=== PATIENT | male | born 1940 | race Caucasian/White ===

== ENCOUNTER → 2016-08-28 | Outpatient (CLI) | payer BC ==
[~2016-08-28] MED LIST: DABI150C PO; FURO-85 PO; HYDC25 PO; LISI5TAB3 PO; METO25TA3 PO; POTA10CA28 PO; PRLSR20 PO
[2016-08-28 12:38] LABS: HEMATOCRIT 42.5 % (42-52); MEAN CELL VOLUME 94.9 fL (80-100); MEAN CORPUSCULAR HEMOGLOBIN 29.9 pg (25-34); MEAN CORPUSCULAR HGB CONC 31.5 g/dl (32-36); PLATELET COUNT 139 K/uL (130-400); RED BLOOD COUNT 4.48 M/uL (4.7-6.1); WHITE BLOOD COUNT 4.91 K/uL (4.8-10.8)
[2016-08-28 13:05] LABS: BLOOD UREA NITROGEN 13 mg/dl (7-18); BUN/CREATININE RATIO 14.6 (10-20); CALCIUM 8.8 mg/dl (8.5-10.1); CARBON DIOXIDE 32 mmol/L (21-32); CHLORIDE 103 mmol/L (98-107); CREATININE 0.92 mg/dl (0.60-1.40); GLUCOSE 86 mg/dl (70-99); POTASSIUM 3.8 mmol/L (3.5-5.1); SODIUM 139 mmol/L (136-145)
[2016-08-28 13:10] LABS: ALB/GLOB RATIO 0.9 (0.9-2); ALKALINE PHOSPHATASE 71 U/L (45-117); ALT/SGPT 18 U/L (12-78); AST/SGOT 24 U/L (15-37); CHOLESTEROL 126 mg/dl (0-200); CHOLESTEROL/HDL RATIO 2.2; HDL CHOLESTEROL 58 mg/dl; LDL CHOLESTEROL CALCULATED 59 mg/dl; TRIGLYCERIDES 44 mg/dl (0-150); VERY LOW DENSITY LIPOPROT CALC 9 mg/dl
== END | disposition home or self-care (01) ==
LOC: C.LABPVFM 07:32
PROVIDERS: ATTEND Physician Assistant
DX: I48.91 Unspecified atrial fibrillation (principal); K22.70 Barrett's esophagus without dysplasia; Z85.828 Personal history of other malignant neoplasm of skin; I10 Essential (primary) hypertension

== ENCOUNTER → 2017-05-15 | Outpatient (CLI) | payer BC ==
--- NOTE | 2017-05-15 13:21 | DIAGNOSTIC IMAGING REPORT ---
BILATERAL LOWER EXTREMITY VENOUS DOPPLER HISTORY: Bilateral lower extremity edema. COMPARISON STUDY: None. FINDINGS: Bilateral lower kidney subcutaneous edema. This results in difficult evaluation of the bilateral calf vessels with near nondiagnostic evaluation. No definite thrombus identified. The bilateral common femoral, superficial femoral, popliteal veins show no acute thrombus. Small punctate calcification within the wall the right common femoral vein could be due to old injury or chronic thrombus. IMPRESSION: 1. No acute DVT within the visualized bilateral lower extremity venous systems. 2. Small focal calcification within the wall of the right common femoral vein which could be due to old injury or a small focus of chronic thrombus. Electronically signed by: Xander Black M.D. 05/15/2017 1:20 PM Dictated Date/Time: 05/15/2017 1:18 PM
== END | disposition home or self-care (01) ==
LOC: C.ULTRBC 12:14
PROVIDERS: ATTEND Orthopaedic Surgery Sports Medicine
DX: R60.0 Localized edema (principal)

== ENCOUNTER 2021-04-05 16:28 | Inpatient (IN) ==
[2021-04-05] MEDS ORDERED: LACTATED RINGER'S 1,000 ML IV ONE (16:49)
[2021-04-05 17:07] LABS: Hematocrit (blood only) 36.9 % (42-52); Hemoglobin 12.4 g/dL (14.0-18.0); Mean Corpuscular Hemoglobin 30.5 pg (25-34); Mean Corpuscular Hgb Conc 33.6 g/dL (32-36); Mean Corpuscular Volume 90.9 fL (80-100); Mean Platelet Volume 8.6 fL (7.4-10.4); Platelet Count 217 K/uL (130-400); RDW Coefficient of Variation 15.1 % (11.5-14.5); Red Blood Count 4.06 M/uL (4.7-6.1); White Blood Count 10.83 K/uL (4.8-10.8)
[2021-04-05 17:30] LABS: Alanine Aminotransferase 15 U/L (7-52); Albumin Level 3.5 gm/dl (3.4-5.0); Alkaline Phosphatase 70 U/L (34-104); Anion Gap 7 (3-11); Aspartate Aminotransferase 19 U/L (13-39); BUN Creatinine Ratio 23.6 (10-20); Bilirubin,Total 0.6 mg/dl (0.2-1.0); Blood Urea Nitrogen 39 mg/dl (6-23); Calcium 9.2 mg/dl (8.5-10.1); Carbon Dioxide 21 mmol/L (21-32); Chloride 100 mmol/L (98-107); Est GFR (African American) 44.1 ml/min; Est GFR (Non-African American) 38.1 ml/min; Globulin 3.4 gm/dl (2.5-4.0); Glucose 104 mg/dl (70-99(Fasting)); Lipase 8 U/L (11-82); Magnesium 2.1 mg/dl (1.7-2.4); Potassium 6.3 mmol/L (3.5-5.1); Sodium 128 mmol/L (136-145); Total Protein 6.9 gm/dl (6.0-8.3); Troponin I 0.12 ng/ml (0-0.04)
[2021-04-05 17:32] LABS: Acanthocytes 1+; Basophils # (auto) 0.01 K/uL (0-0.2); Basophils % (auto) 0.1 %; Eosinophils # (auto) 0.04 K/uL (0-0.5); Eosinophils % (auto) 0.4 %; Immature Granulocytes # (auto) 0.09 K/uL (0.00-0.02); Immature Granulocytes % (auto) 0.8 %; Lymphocytes # (auto) 0.75 K/uL (1.2-3.4); Lymphocytes % (auto) 6.9 %; Monocytes # (auto) 0.71 K/uL (0.11-0.59); Monocytes % (auto) 6.6 %; Neutrophils # (auto) 9.23 K/uL (1.4-6.5); Neutrophils % (auto) 85.2 %
--- NOTE | 2021-04-05 19:12 | Emergency Department Note ---
History of Present Illness General Chief complaint: Abnormal Labs/Diagnostic Testing Stated complaint: DR AJ, DEHYDRATED, BP LOW Time Seen by Provider: 04/05/21 16:38 Source: patient and family Mode of arrival: ambulatory Limitations: no limitations History of Present Illness Provider complaint: Weakness, hypotension, referred by PCP Onset (ago): week(s) 1 Associated symptoms: + loss of appetite and + malaise; no cough, no fever/chills, no nausea/vomiting or no shortness of breath Treatments prior to arrival: none This is an 80-year-old male who presents emergency department due to concern for weakness and low blood pressure found by the PCP in the office. Patient states he began having diarrhea 1 week ago after he and his sister whom he lives with had eaten out the night before. Patient states he has had several episodes of diarrhea each day over the course of the last week. He states he does have intermittent abdominal pain and cramping with it, typically preceding the diarrhea and improved after. He denies noting any black or bloody stools. He denies any accompanying nausea or vomiting. He denies fevers or chills. Patient states he has felt increasingly weak and has had some mild dyspnea on exertion. He finally saw the PCP in the office today, and upon a check of his vital signs on presentation to the office he was found to be hypotensive, 80s over 60s. He was referred to the emergency room for additional evaluation. Patient has had prior abdominal surgery including resection of his colon with reanastomosis. Patient denies any bloating. He denies any other change in medications or diet. Sister states she has not been ill. Sister states he doesn't drink much water. Pt seen during a time of high acuity and national emergency pandemic while wearing PPE. Home Medications Medication Instructions Recorded Confirmed Type flunisolide 25 mcg (0.025 %) nasal 1 sprays INTRANASAL ONCE PRN ml 08/10/18 04/05/21 History spray multivitamin 1 tab PO BID 10/23/18 04/05/21 History aspirin 81 mg tablet,delayed 81 mg PO DAILY 02/18/19 04/05/21 History release lisinopril 5 mg tablet 5 mg PO QAM #90 tab 02/23/20 04/05/21 Rx metoprolol succinate 25 mg 12.5 mg PO DAILY #45 tab 02/23/20 04/05/21 Rx tablet,extended release 24 hr omeprazole 20 mg capsule,delayed 20 mg PO QAM #90 cap 02/23/20 04/05/21 Rx release meloxicam 7.5 mg tablet 7.5 mg PO DAILY 14 Days #14 tab 06/21/20 04/05/21 Rx metolazone 5 mg tablet 5 mg PO QAM #30 tab 07/30/20 04/05/21 Rx spironolactone 25 mg tablet 25 mg PO DAILY #90 tab 02/18/21 04/05/21 Rx potassium chloride 20 mEq 60 meq PO .COMPLEX #450 tab 03/15/21 04/05/21 Rx tablet,extended release(part/cryst) furosemide 40 mg tablet 40 mg PO BID #180 tab 03/25/21 04/05/21 Rx Allergies Allergy/AdvReac Type Severity Reaction Status Date / Time No Known Allergies Allergy Unknown Verified 04/05/21 17:36 Past Med/Surg History Medical History Hearing deficit History of colon polyps Melanoma of face Osteoarthritis Pulmonary embolism 2004--after ortho sx--on pradaxa Surgical History History of colonoscopy History of colostomy 02/1989 History of colostomy reversal History of esophagogastroduodenoscopy (EGD) History of inferior vena caval filter placement 2005 @ [facility] History of Mohs micrographic surgery for skin cancer x2 History of partial colectomy benign tumor growth 02/1989--about 1 foot removed History of sinus surgery History of tonsillectomy and adenoidectomy History of tooth extraction all teeth removed History of total bilateral knee replacement History of total replacement of both hip joints Family History Mother Diabetes Father Sick sinus syndrome due to SA node dysfunction Sister Colorectal cancer Other No family history of adverse response to anesthesia Denies family history of Ovarian cancer Prostate cancer Breast cancer Social History Smoking Status: Former smoker Age Quit Using Tobacco: 38; Second Hand Exposure: No; Do You Dip or Chew Tobacco: No; Tobacco Cessation Education Requested by Patient: No Hx Alcohol Use: Yes Alcohol type: beer Hx Substance Use: No Preferred Language: Marshallese Communication Ability: Effective Hearing Ability: Use of Hearing Aid [employer] Maintenance [employer] Required: No Beliefs That Will Affect Care: None marital status: Unknown Current Living Situation: Family Current Living Situation Comment: lives with sister current occupational status: retired How many Children do You have: 1 Other Information That Helps Us Care for You: No Feels Safe at Home: Yes Safety Concerns: Feels Safe At This Time Childhood Exposure to Second-Hand Smoke: Yes caffeine: Yes Dental Care, Regularly: No Physical Activity Frequency: Daily Physical Activity Frequency Comment: Walking Seatbelt Use: always Sunscreen Use: No Assistive Devices: Walker Review of Systems A total of 10 systems reviewed and were otherwise negative All systems reviewed & are unremarkable except as noted in HPI & below Physical Exam Vital Signs Vital Signs - 24 hr 04/05/21 16:30 04/05/21 16:56 04/05/21 18:56 Temperature 36.5 C Temperature Source Oral Pulse Rate 71 Pulse Rate [Apical] 65 55 L Pulse Rhythm [Apical] Regular Regular Respiratory Rate 18 18 19 Respiratory Effort / Characteristics Non-Labored Spontaneous Respiratory Depth Normal Normal Normal Respiratory Pattern Regular Blood Pressure 88/55 L Blood Pressure [Left Arm] 120/59 L 120/60 Blood Pressure Mean 66 Blood Pressure Mean [Left Arm] 79 80 Blood Pressure Position Sitting Pulse Oximetry 97 95 96 Oxygen Delivery Method Room Air Room Air Room Air Sepsis Recent Fever Within 48 Hours No Sepsis New/Unexplained Change in Mental Status No Sepsis Action Taken by Nursing No Action Required GENERAL: alert, well appearing, well nourished, no distress, non-toxic EYE EXAM: normal conjunctiva, PERRL and EOM's grossly intact OROPHARYNX: no exudate, no erythema, lips, buccal mucosa, and tongue normal and mucous membranes are tacky NECK: supple, no nuchal rigidity, no adenopathy, non-tender LUNGS: Clear to auscultation. Normal chest wall mechanics, no w/r/r HEART: no murmurs, S1 normal and S2 normal ABDOMEN: abdomen soft, non-tender, normo-active bowel sounds, no masses, no rebound or guarding. Well-healed vertical midline incision to the lower abdomen consistent with prior surgery. BACK: Back is symmetrical on inspection and there is no deformity, no midline tenderness, no CVA tenderness. SKIN: no rashes and no bruising UPPER EXTREMITIES: upper extremities are grossly normal. FROM, nml pulses b/l. LOWER EXTREMITIES: No pitting edema. FROM, nml pulses b/l. NEURO EXAM: Normal sensorium, cranial nerves II-XII grossly intact, normal speech, no gross weakness of arms, no gross weakness of legs. Gross sensation intact. Course Course 1899: Patient updated on results at this time. Administered Medications Aspirin (Aspirin 81 Mg Ectab) 81 mg PO DAILY KARIS Stop: 05/06/21 08:59 Last Admin: 04/07/21 08:25 Dose: 81 mg Documented by: [id number] Admin: 04/06/21 07:41 Dose: 81 mg Documented by: [id number] Enoxaparin Sodium (Enoxaparin Inj 30 Mg/0.3 Ml Syr) 30 mg SQ Q24H KARIS Stop: 05/05/21 21:59 Last Admin: 04/06/21 23:21 Dose: 30 mg Documented by: [id number] Admin: 04/06/21 01:02 Dose: 30 mg Documented by: [id number] Sodium Chloride (Nss 1000ml) 1,000 mls @ 125 mls/hr IV .Q8H KARIS Stop: 05/06/21 15:14 Last Admin: 04/07/21 04:49 Dose: 125 mls/hr Documented by: [id number] Infusion: 04/07/21 04:49 Dose: 0 mls/hr Documented by: [id number] Admin: 04/06/21 21:29 Dose: 125 mls/hr Documented by: [id number] Metoprolol Succinate (Metoprolol Succ 25mg Ext Rel Tab) 12.5 mg PO DAILY KARIS Stop: 05/06/21 08:59 Last Admin: 04/07/21 08:24 Dose: 12.5 mg Documented by: [id number] Admin: 04/06/21 07:42 Dose: 12.5 mg Documented by: [id number] Multivitamins (Multivitamin Tab) 1 tab PO BID KARIS Stop: 05/05/21 22:29 Last Admin: 04/07/21 08:24 Dose: 1 tab Documented by: [id number] Admin: 04/06/21 21:33 Dose: 1 tab Documented by: [id number] Admin: 04/06/21 07:42 Dose: 1 tab Documented by: [id number] Admin: 04/06/21 01:02 Dose: 1 tab Documented by: [id number] Pantoprazole Sodium (Pantoprazole 40 Mg Tab) 40 mg PO QAM [facility] Stop: 05/06/21 08:59 Last Admin: 04/07/21 08:24 Dose: 40 mg Documented by: [id number] Admin: 04/06/21 07:42 Dose: 40 mg Documented by: [id number] Discontinued Medications Lactated Ringer's (Lr) 1,000 mls @ 999 mls/hr IV .Q1H1M ONE Stop: 04/05/21 17:49 Last Infusion: 04/05/21 19:12 Dose: 0 mls/hr Documented by: [id number] Admin: 04/05/21 16:55 Dose: 999 mls/hr Documented by: [id number] Lactated Ringer's (Lr) 1,000 mls @ 125 mls/hr IV .Q8H [facility] Stop: 04/06/21 03:14 Last Infusion: 04/06/21 11:09 Dose: 0 mls/hr Documented by: [id number] Admin: 04/06/21 03:47 Dose: 125 mls/hr Documented by: [id number] Infusion: 04/06/21 03:46 Dose: 0 mls/hr Documented by: [id number] Admin: 04/05/21 19:26 Dose: 125 mls/hr Documented by: [id number] Sodium Chloride (Nss 1000ml) 500 mls @ 999 mls/hr IV .Q31M ONE Stop: 04/06/21 14:02 Last Infusion: 04/06/21 16:00 Dose: 0 mls/hr Documented by: [id number] Admin: 04/06/21 15:25 Dose: 999 mls/hr Documented by: [id number] Sodium Chloride (Nss) 500 mls @ 125 mls/hr IV .Q4H [facility] Stop: 05/06/21 15:14 Last Admin: 04/07/21 02:01 Dose: Not Given Documented by: [id number] Infusion: 04/06/21 20:10 Dose: 0 mls/hr Documented by: [id number] Admin: 04/06/21 16:06 Dose: 125 mls/hr Documented by: [id number] Medical Decision Making Differential Diagnosis Differential: Viral, Bacterial, Parasitic, Iatrogenic, C-Diff, Malabsorbtion, Irritable Bowel Disease, IBS, Ischemic Bowel, amongst other pathologies entertained. Medical Records Attestation: I reviewed the patient's medical records. Home Medications Current Medication List: was personally reviewed by me Laboratory Data Attestation: I reviewed the patient's lab results. Result diagrams: 04/07/21 07:02 04/07/21 07:02 Lab Results 04/05/21 04/05/21 04/05/21 Range/Units 17:00 17:00 17:00 WBC 10.83 H (4.8-10.8) K/uL RBC 4.06 L (4.7-6.1) M/uL Hgb 12.4 L (14.0-18.0) g/dL Hct 36.9 L (42-52) % MCV 90.9 (80-100) fL MCH 30.5 (25-34) pg MCHC 33.6 (32-36) g/dL RDW Std Deviation 50.0 H (36.4-46.3) fL RDW Coeff of Thomas 15.1 H (11.5-14.5) % Plt Count 217 (130-400) K/uL MPV 8.6 (7.4-10.4) fL Immature Gran % (Auto) 0.8 % Neut % (Auto) 85.2 % Lymph % (Auto) 6.9 % [place] % (Auto) 6.6 % Eos % (Auto) 0.4 % Baso % (Auto) 0.1 % Neut # (Auto) 9.23 H (1.4-6.5) K/uL Lymph # (Auto) 0.75 L (1.2-3.4) K/uL [place] # (Auto) 0.71 H (0.11-0.59) K/uL Eos # (Auto) 0.04 (0-0.5) K/uL Baso # (Auto) 0.01 (0-0.2) K/uL Immature Gran # (Auto) 0.09 H (0.00-0.02) K/uL Acanthocytes (Spur) 1+ Sodium 128 L (136-145) mmol/L Potassium 6.3 H* (3.5-5.1) mmol/L Chloride 100 (98-107) mmol/L Carbon Dioxide 21 (21-32) mmol/L Anion Gap 7 (3-11) BUN 39 H (6-23) mg/dl Creatinine 1.65 H (0.6-1.4) mg/dl Est Cr Clr Drug Dosing Not Reportable Est GFR ( Amer) 44.1 ml/min Est GFR (Non-Af Amer) 38.1 ml/min BUN/Creatinine Ratio 23.6 H (10-20) Glucose 104 H (70-99(Fasting)) mg/dl Lactate 1.2 (0.4-2.0) mmol/L Calcium 9.2 (8.5-10.1) mg/dl Magnesium 2.1 (1.7-2.4) mg/dl Total Bilirubin 0.6 (0.2-1.0) mg/dl AST 19 (13-39) U/L ALT 15 (7-52) U/L Alkaline Phosphatase 70 (34-104) U/L Troponin I 0.12 H* (0-0.04) ng/ml Total Protein 6.9 (6.0-8.3) gm/dl Albumin 3.5 (3.4-5.0) gm/dl Globulin 3.4 (2.5-4.0) gm/dl Albumin/Globulin Ratio 1.0 (0.9-2) Lipase 8 L (11-82) U/L SARS-CoV-2, RNA, NAAT (NEGATIVE) 04/05/21 04/05/21 Range/Units 19:13 19:50 WBC (4.8-10.8) K/uL RBC (4.7-6.1) M/uL Hgb (14.0-18.0) g/dL Hct (42-52) % MCV (80-100) fL MCH (25-34) pg MCHC (32-36) g/dL RDW Std Deviation (36.4-46.3) fL RDW Coeff of Thomas (11.5-14.5) % Plt Count (130-400) K/uL MPV (7.4-10.4) fL Immature Gran % (Auto) % Neut % (Auto) % Lymph % (Auto) % [place] % (Auto) % Eos % (Auto) % Baso % (Auto) % Neut # (Auto) (1.4-6.5) K/uL Lymph # (Auto) (1.2-3.4) K/uL [place] # (Auto) (0.11-0.59) K/uL Eos # (Auto) (0-0.5) K/uL Baso # (Auto) (0-0.2) K/uL Immature Gran # (Auto) (0.00-0.02) K/uL Acanthocytes (Spur) Sodium 130 L (136-145) mmol/L Potassium 5.8 H (3.5-5.1) mmol/L Chloride 103 (98-107) mmol/L Carbon Dioxide 21 (21-32) mmol/L Anion Gap 6 (3-11) BUN 38 H (6-23) mg/dl Creatinine 1.48 H (0.6-1.4) mg/dl Est Cr Clr Drug Dosing Not Reportable Est GFR ( Amer) 50.3 ml/min Est GFR (Non-Af Amer) 43.4 ml/min BUN/Creatinine Ratio 25.7 H (10-20) Glucose 100 H (70-99(Fasting)) mg/dl Lactate (0.4-2.0) mmol/L Calcium 8.7 (8.5-10.1) mg/dl Magnesium (1.7-2.4) mg/dl Total Bilirubin (0.2-1.0) mg/dl AST (13-39) U/L ALT (7-52) U/L Alkaline Phosphatase (34-104) U/L Troponin I (0-0.04) ng/ml Total Protein (6.0-8.3) gm/dl Albumin (3.4-5.0) gm/dl Globulin (2.5-4.0) gm/dl Albumin/Globulin Ratio (0.9-2) Lipase (11-82) U/L SARS-CoV-2, RNA, NAAT NEGATIVE (NEGATIVE) Imaging Data Radiologist's Impression: Abdomen/Pelvis CT 04/05/21 19:08 CT OF THE ABDOMEN AND PELVIS WITHOUT CONTRAST CLINICAL HISTORY: Diarrhea. COMPARISON STUDY: No previous studies for comparison. TECHNIQUE: Axial images of the abdomen and pelvis were obtained without IV contrast. Images were reviewed in the axial, sagittal, and coronal planes. Automated exposure control was utilized for the study. A dose lowering technique was utilized adhering to the principles of ALARA. FINDINGS: Bilateral gynecomastia is incidentally noted. Moderate cardiomegaly is present. Lung bases are unremarkable. There is a small hiatal hernia. Evaluation of the abdomen and pelvis is suboptimal given lack of IV contrast and motion artifact. Unenhanced images of liver, spleen, adrenal glands, right kidney and pancreas are unremarkable. 2 mm nonobstructing left renal calculus is present. There is no hydronephrosis. No ureteral calculi identified although evaluation of the distal ureter is compromised by streak artifact from bilateral hip arthroplasties. IVC filter is in place. No biliary or pancreatic ductal dilatation. No peripancreatic or pericholecystic infiltration. A left-sided spigelian hernia contains multiple small bowel loops. A portion of the descending colon slightly extends into the defect. There is no resultant bowel obstruction. There is suspected mild wall thickening of several distal ileal loops with mild associated mesenteric stranding. Colonic diverticulosis without evidence for acute diverticulitis. The appendix is normal. No acute fracture or suspicious lesion is identified within visualized skeletal structures. IMPRESSION: 1. Suspected mild wall thickening of several distal ileal loop with mild associated mesenteric stranding. This represents a nonspecific enteritis. 2. Left-sided spigelian hernia which contains multiple small bowel loops and a small portion of the descending colon. No resultant bowel obstruction. 3. Suboptimal evaluation of the abdomen given motion artifact and lack of IV contrast. 4. Small hiatal hernia. 5. 2 mm left renal calculus. No hydronephrosis. No ureteral calculi. ACT 112: Negative or not required by law. Electronically signed by: Huber Tee M.D. 04/05/2021 7:48 PM ECG Data Attestation: I personally reviewed and interpreted this ECG as follows: Indication: + weakness Rate (beats per minute): 70 Rhythm: + atrial fibrillation ECG Intervals/blocks: + Normal QRS and + Normal QT ECG [place]: + Left axis deviation ECG ST segments: + Nonspecific ST abnormalities MDM Narrative This is an 80 yo male sent in by PCP due to abnormal outpt labs and concern for recent diarrhea. Patient with likely dehydration as he and sister state poor water intake this week. No medication changes. Patient started on IVF. LAKSHMI and likely secondary hyperkalemia noted. Likely from diarrhea and dehydration in combination with his current medications. Elevated troponin likely from renal dysfunction, however, given age and UMANA, may need additional evaluation. No acute EKG changes. No abdominal pain while in the ER, lactic acid reassuring, CT reassuring. Discussed all results with patient and sister given need for cautious additional rehydration and evaluation of symptoms. No diarrhea while patient in the ER. An order was placed for continuous cardiac monitoring. The monitor shows a rate of _72__ with _a.fib_ rhythm. Impression & Plan LAKSHMI (acute kidney injury), Diarrhea, Dehydration, Acute hyperkalemia Discharge Plan Visit Data Chief Complaint: Abnormal Labs/Diagnostic Testing Stated Complaint: DR REFERRAL, DEHYDRATED, BP LOW ED Provider: Lucila Gómez Discharge Problem: LAKSHMI (acute kidney injury), Diarrhea, Dehydration, Acute hyperkalemia Patient Disposition: Admitted As Inpatient Discharge Instructions Interventions: ED Discharge Assessment Last Done: 04/05/21 22:08 Discharge Problem: Diarrhea Qualifiers: Diarrhea type: unspecified type Qualified Code(s): R19.7 - Diarrhea, unspecified
[2021-04-05] MEDS: LACTATED RINGER'S 1,000 ML IV SCH (19:26)
--- NOTE | 2021-04-05 19:50 | CT Scan Report ---
CT OF THE ABDOMEN AND PELVIS WITHOUT CONTRAST CLINICAL HISTORY: Diarrhea. COMPARISON STUDY: No previous studies for comparison. TECHNIQUE: Axial images of the abdomen and pelvis were obtained without IV contrast. Images were revi ewed in the axial, sagittal, and coronal planes. Automated exposure control was utilized for the cathi dy. A dose lowering technique was utilized adhering to the principles of ALARA. FINDINGS: Bilateral gynecomastia is incidentally noted. Moderate cardiomegaly is present. Lung bases are unremarkable. There is a small hiatal hernia. Evaluation of the abdomen and pelvis is suboptimal given lack of IV contrast and motion artifact. Unenhanced images of liver, spleen, adrenal glands, ri ght kidney and pancreas are unremarkable. 2 mm nonobstructing left renal calculus is present. There i s no hydronephrosis. No ureteral calculi identified although evaluation of the distal ureter is compr omised by streak artifact from bilateral hip arthroplasties. IVC filter is in place. No biliary or pa ncreatic ductal dilatation. No peripancreatic or pericholecystic infiltration. A left-sided spigelian hernia contains multiple small bowel loops. A portion of the descending colon slightly extends into the defect. There is no resultant bowel obstruction. There is suspected mild wall thickening of sever al distal ileal loops with mild associated mesenteric stranding. Colonic diverticulosis without evide nce for acute diverticulitis. The appendix is normal. No acute fracture or suspicious lesion is ident ified within visualized skeletal structures. IMPRESSION: 1. Suspected mild wall thickening of several distal ileal loop with mild associated mesenteric strand ing. This represents a nonspecific enteritis. 2. Left-sided spigelian hernia which contains multiple small bowel loops and a small portion of the d escending colon. No resultant bowel obstruction. 3. Suboptimal evaluation of the abdomen given motion artifact and lack of IV contrast. 4. Small hiatal hernia. 5. 2 mm left renal calculus. No hydronephrosis. No ureteral calculi. ACT 112: Negative or not required by law. Electronically signed by: Huber Tee M.D. 04/05/2021 7:48 PM
[2021-04-05 20:15] LABS: Anion Gap 6 (3-11); BUN Creatinine Ratio 25.7 (10-20); Blood Urea Nitrogen 38 mg/dl (6-23); Calcium 8.7 mg/dl (8.5-10.1); Carbon Dioxide 21 mmol/L (21-32); Chloride 103 mmol/L (98-107); Est GFR (African American) 50.3 ml/min; Est GFR (Non-African American) 43.4 ml/min; Glucose 100 mg/dl (70-99(Fasting)); Potassium 5.8 mmol/L (3.5-5.1); Sodium 130 mmol/L (136-145)
--- NOTE | 2021-04-05 21:01 | History & Physical Report ---
Date of Service April 05, 2021 Assessment & Plan (1) Diarrhea: Plan: Bassem Bradley is an 80yo male with PMHx significant for HFpEF (unknown EF), a- fib (on BB but no AC), HTN, HLD, vitamin D deficiency, and hearing loss who presented to [facility] ED with diarrhea, LAKSHMI and electrolyte abnormalities. Diarrhea; Dehydration; Generalized Weakness Suspect that enteritis (most likely viral) with associated diarrhea and dehydration is root cause of most, if not all, current acute problems. Patient already showing improvement with IVFs. However he reportedly has fallen several times in last few months and may have a certain measure of chronic ambulatory dysfunction. - c. diff testing ordered, as well as stool cultures and Giardia Ag - pending - continue LR @125cc/hr - PT/OT ordered LAKSHMI; Hyperkalemia; Hyponatremia Cr 1.65 --> 1.48 after IVF bolus. Baseline Cr 1.2. K 6.3 --> 5.8 after IVF bolus. Suspect pre-renal injury and associated hyperkalemia 2/2 above. Also, Na 128 --> 130 after IVF bolus. Suspect hypovolemic hypotonic hyponatremia 2/2 above. Home diuretics and VINICIUS-I likely contributing to all of these problems. - continue IVFs as stated above - hold home Lisinopril, Lasix, Metolazone, Spironolactone and Mobic - would consider consolidating home regimen to reduce risk of LAKSHMI/electrolyte abnormalities - defer to primary team and PCP/Analytics Lead - hold home potassium - repeat BMP in AM Elevated Troponin Troponin 0.12 but no chest pain and no ST/T wave changes on EKG. Suspect Type II NSTEMI due to dehydration. - will trend Troponin Q6H x2 - EKG PRN chest pain HFpEF; Permanent A-fib With unknown last EF - none in EMR. Sees Dr. Edgar. Refuses anti-coagulation per notes by Dr. Edgar, despite high CHADS-VASc score. - ordered TTE to ensure that patient can tolerate IVFs - continue home Aspirin and Toprol XL 12.5mg GERD - Protonix per hospital formulary FEN/GI: heart-healthy diet, LR @125cc/hr DVT Prophylaxis: Lovenox 30mg SQ Q24H (reduced dose due to advanced age and LAKSHMI) Code Status: full code Disposition: med/surg with tele (2) Dehydration: (3) Ambulatory dysfunction: (4) Atrial fibrillation: (5) Diastolic CHF: (6) Hyponatremia: (7) Hyperkalemia: (8) Acute kidney injury: (9) Elevated troponin: (10) Hypertension: History of Present Illness Chief Complaint: low blood pressure Primary Care Provider: Mohan Sanches DO Bassem Bradley is an 80yo male with PMHx significant for HFpEF (unknown EF), a- fib (on BB but no AC), HTN, HLD, vitamin D deficiency, and hearing loss who presented to [facility] ED on 04/05 for low blood pressure and generalized weakness in context of diarrhea x10 days. Patient reports diarrhea, without blood or mucus, 2-4x per day for last 10 days. Patient has also had decreased PO intake per . He usually is very active and is proficient in all ADLs/iADLs but fell at home (without LOC or trauma) due to weakness. He was tested by PCP (Dr. Sheppard) for c. diff and negative for the gene on 04/02. Due to persistant symptoms and low blood pressure, Dr. Christianson asked him to present to ED. No associated fever/chills. No recent respiratory symptoms or urinary symptoms. No rash. No recent travel or consumption of well water. In the ED the patient was initially hypotensive to 78/50 and tachycardic to 112. He received 1L LR bolus - HR down to 50s-70s and BP up to 120/60. EKG showed a- fib without RVR, and with sign of previous inferior infarct. Laboratory evaluation was significant for WBC 10.83 with neutrophilic predominance and left shift, Hgb 12.4, Na 128, K 6.3, Cr 1.65, BUN 39, Troponin 0.12. After LR bolus, Na improved to 130, K down to 5.8, Cr down to 1.48. Patient had CT A/P which showed mild wall thickening of several distal ileal loops with associated mesenteric stranding, suspicious for nonspecific enteritis. Allergies Allergy/AdvReac Type Severity Reaction Status Date / Time No Known Allergies Allergy Unknown Verified 04/05/21 17:36 Home Medications Medication Instructions Recorded Confirmed Type flunisolide 25 mcg (0.025 %) nasal 1 sprays INTRANASAL ONCE PRN ml 08/10/18 04/05/21 History spray multivitamin 1 tab PO BID 10/23/18 04/05/21 History aspirin 81 mg tablet,delayed 81 mg PO DAILY 02/18/19 04/05/21 History release lisinopril 5 mg tablet 5 mg PO QAM #90 tab 02/23/20 04/05/21 Rx metoprolol succinate 25 mg 12.5 mg PO DAILY #45 tab 02/23/20 04/05/21 Rx tablet,extended release 24 hr omeprazole 20 mg capsule,delayed 20 mg PO QAM #90 cap 02/23/20 04/05/21 Rx release meloxicam 7.5 mg tablet 7.5 mg PO DAILY 14 Days #14 tab 06/21/20 04/05/21 Rx metolazone 5 mg tablet 5 mg PO QAM #30 tab 07/30/20 04/05/21 Rx spironolactone 25 mg tablet 25 mg PO DAILY #90 tab 02/18/21 04/05/21 Rx potassium chloride 20 mEq 60 meq PO .COMPLEX #450 tab 03/15/21 04/05/21 Rx tablet,extended release(part/cryst) furosemide 40 mg tablet 40 mg PO BID #180 tab 03/25/21 04/05/21 Rx Past Med/Surg History Medical History Hearing deficit History of colon polyps Melanoma of face Osteoarthritis Pulmonary embolism 2004--after ortho sx--on pradaxa Surgical History History of colonoscopy History of colostomy 02/1989 History of colostomy reversal History of esophagogastroduodenoscopy (EGD) History of inferior vena caval filter placement 2004 @ [facility] History of Mohs micrographic surgery for skin cancer x2 History of partial colectomy benign tumor growth 02/1989--about 1 foot removed History of sinus surgery History of tonsillectomy and adenoidectomy History of tooth extraction all teeth removed History of total bilateral knee replacement History of total replacement of both hip joints Family History Mother Diabetes Father Sick sinus syndrome due to SA node dysfunction Sister Colorectal cancer Other No family history of adverse response to anesthesia Denies family history of Ovarian cancer Prostate cancer Breast cancer Social History Smoking Status: Former smoker Age Quit Using Tobacco: 38; Second Hand Exposure: No; Do You Dip or Chew Tobacco: No; Tobacco Cessation Education Requested by Patient: No Hx Alcohol Use: Yes Alcohol type: beer Hx Substance Use: No Preferred Language: Australian Communication Ability: Effective Hearing Ability: Use of Hearing Aid Trim Die Maker Required: No Beliefs That Will Affect Care: None marital status: Unknown Current Living Situation: Family Current Living Situation Comment: lives with sister current occupational status: retired How many Children do You have: 1 Other Information That Helps Us Care for You: No Feels Safe at Home: Yes Safety Concerns: Feels Safe At This Time Childhood Exposure to Second-Hand Smoke: Yes caffeine: Yes Dental Care, Regularly: No Physical Activity Frequency: Daily Physical Activity Frequency Comment: Walking Seatbelt Use: always Sunscreen Use: No Assistive Devices: Cane Review of Systems Review of Systems: All systems reviewed & are unremarkable except as noted in HPI & below Physical Exam Physical Exam: General: A&Ox3. NAD. Cooperative. HEENT: Atraumatic, normocephalic. Pulm: CTAB A&P. -wheezes, -rales, -rhonchi. Symmetrical chest rise. No increase work of breathing. No respiratory distress. No LE edema. Cardiac: irregularly irregular rhythm, -mrg. Radial pulses intact and symmetrical. Abdominal: soft, non-tender, non-distended, BS x 4 Skin: warm, dry, no rash Results & Data Results & Data ([facility]) Vital Signs (Past 12 Hours) Vital Signs Temp Pulse Pulse Resp BP BP Pulse Ox 04/05/21 18:56 55 L 19 120/60 96 04/05/21 16:56 65 18 120/59 L 95 04/05/21 16:30 36.5 C 71 18 88/55 L 97 Code Status & VTE Plan Code Status full code Supervising Physician Co-Signing Physician Notes Attending addendum: I have physically seen this patient, have supervised the medical residents activities, and agree with the H&P unless as otherwise noted. Assessment and Plan: Elevated troponin/atrial fibrillation/HFpEF/hypertension- The patient will be admitted to telemetry for serial cardiac enzymes, serial EKG's, cardiac rhythm monitoring and a 2-D echocardiogram with Dopplers. Troponin 0.12 upon admission. Most likely supply demand mismatch type II Continue aspirin, metoprolol succinate Hold furosemide and metolazone and spironolactone Hyponatremia/hyperkalemia/acute kidney injury- Hold diuretics as noted above Enteritis complicating hypovolemic wellness IV fluids as noted, LR at 125 mils per hour Repeat laboratories in a.m. Remaining orders and notations as noted Resident Activity Tracking Resident Involvement: Resident Care Provided Care Provided: Adult Hospital Medicine
[2021-04-05] MEDS ORDERED: ACETAMINOPHEN 325 MG TAB PO PRN (22:30)
[2021-04-06] MEDS: MULTIVITAMIN TAB PO SCH ×3 (01:02→21:33)
[2021-04-06] MEDS: ENOXAPARIN INJ 30 MG/0.3 ML SYR SQ SCH ×2 (01:02→23:21)
[2021-04-06] MEDS: LACTATED RINGER'S 1,000 ML IV SCH (03:47)
[2021-04-06 06:04] LABS: Hematocrit (blood only) 30.5 % (42-52); Hemoglobin 10.2 g/dL (14.0-18.0); Mean Corpuscular Hemoglobin 30.5 pg (25-34); Mean Corpuscular Hgb Conc 33.4 g/dL (32-36); Mean Corpuscular Volume 91.3 fL (80-100); Mean Platelet Volume 8.6 fL (7.4-10.4); Platelet Count 177 K/uL (130-400); RDW Coefficient of Variation 15.1 % (11.5-14.5); RDW Standard Deviation 50.1 fL (36.4-46.3); Red Blood Count 3.34 M/uL (4.7-6.1); White Blood Count 6.77 K/uL (4.8-10.8)
[2021-04-06 06:25] LABS: Acanthocytes 1+; Basophils # (auto) 0.01 K/uL (0-0.2); Basophils % (auto) 0.1 %; Echinocytes 1+; Eosinophils # (auto) 0.11 K/uL (0-0.5); Eosinophils % (auto) 1.6 %; Immature Granulocytes # (auto) 0.05 K/uL (0.00-0.02); Immature Granulocytes % (auto) 0.7 %; Lymphocytes # (auto) 1.19 K/uL (1.2-3.4); Lymphocytes % (auto) 17.6 %; Monocytes # (auto) 0.54 K/uL (0.11-0.59); Neutrophils # (auto) 4.87 K/uL (1.4-6.5)
[2021-04-06 06:32] LABS: BUN Creatinine Ratio 26.5 (10-20); Calcium 7.6 mg/dl (8.5-10.1); Creatinine Clr Calc Pharmacy 51.8 ml/min; Est GFR (African American) 66.9 ml/min; Est GFR (Non-African American) 57.7 ml/min; Magnesium 1.9 mg/dl (1.7-2.4); Phosphorus 3.5 mg/dl (2.5-4.9); Potassium 4.9 mmol/L (3.5-5.1)
--- NOTE | 2021-04-06 07:34 | Hospitalist Progress Note ---
Date of Service April 06, 2021 Assessment & Plan (1) Diarrhea: Plan: Bassem Bradley is an 80yo male with PMHx significant for HFpEF (unknown EF), a- fib (on BB but no AC), HTN, HLD, vitamin D deficiency, and hearing loss who presented to [facility] ED with diarrhea, LAKSHMI and electrolyte abnormalities. Diarrhea; Dehydration; Generalized Weakness - Suspect that enteritis (most likely viral) with associated diarrhea and dehydration is root cause of most, if not all, current acute problems. Patient already showing improvement with IVFs. However he reportedly has fallen several times in last few months and may have a certain measure of chronic ambulatory dysfunction. - Stool PCR testing negative - NSS at 125cc/h - PT/OT ordered LAKSHMI; Hyperkalemia -- both now resolved with IVF - Suspect pre-renal injury and associated hyperkalemia 2/2 above. Home diuretics and VINICIUS-I likely contributing to above -- holding at this time. - continue IVFs as stated abov - hold home Lisinopril, Lasix, Metolazone, Spironolactone and Mobic - would consider consolidating home regimen to reduce risk of LAKSHMI/electrolyte abnormalities - defer to primary team and PCP/Blow Down Helper - hold home potassium - Monitor BMP Hyponatremia - Initially suspect hypovolemic hypotonic hyponatremia secondary to GI infection -- however, persistent despite IVF - Na 128 --> 130 after IVF bolus --> 129 on mIVF - Due to persistent hyponatremia despite IVF, check urine urea and urine creatinine to calculate fractional excretion of urea - FENa not indicated due to diuretic use - Continue IVF as above - Continue to monitor BMP Elevated Troponin -- downtrended - Troponin 0.12 but no chest pain and no ST/T wave changes on EKG. Suspect Type II NSTEMI due to dehydration. - Downtrended after IVF HFpEF; Permanent A-fib - With unknown last EF - none in EMR. Sees Dr. Edgar. Refuses anti-coagulation per notes by Dr. Edgar, despite high CHADS-VASc score. - ordered TTE to ensure that patient can tolerate IVFs - continue home Aspirin and Toprol XL 12.5mg GERD - Protonix per hospital formulary FEN/GI: heart-healthy diet, NSS @125cc/hr DVT Prophylaxis: Lovenox 30mg SQ Q24H (reduced dose due to advanced age and LAKSHMI) Code Status: full code Disposition: med/surg with tele (2) Dehydration: (3) Ambulatory dysfunction: (4) Atrial fibrillation: (5) Diastolic CHF: (6) Hyponatremia: (7) Hyperkalemia: (8) Acute kidney injury: (9) Elevated troponin: (10) Hypertension: Admission and Anticipated Discharge Date Admission Date: April 05, 2021 Supervising Physician Co-Signing Physician Notes I personally examined the patient and verified all ho points of history and exam, discussed case, and agree with decision making with Dr Al feeling better diarrhea improving eating OK vitals noted nad heent nc at mmm breathing unlabored no accessory muscles good effort skin no rashes no pallor or icterus neuro no focal deficits dehydration/LAKSHMI/demand ischemia elevated troponin/mild hypotension - all appears related to viral GE - improving. continue fluids and supportive care. Subjective No acute events overnight. Seen at bedside this AM. Reports feeling much better today and was able to have a formed BM earlier. Does not have much of an appetite but feels like it's a bit better. Denies current f/c, n/v, abd pain, CP, palp, SOB, neuro issues. Review of Systems Review of Systems: per subjective Physical Exam Physical Exam: GENERAL: A&Ox3. NAD. HEENT: PERRL, EOMI. Moist mucous membranes. CHEST/LUNGS: CTAB A/P. No crackles, wheezes, rales, rhonchi. HEART: RRR. No m/g/r. No carotid bruits. ABDOMEN: NT/ND, soft. BS+ x4 EXTREMITIES: No cyanosis, no clubbing, no edema. SKIN: Warm and dry. No rashes or lesions. PSYCHIATRIC: Euthymic affect, no SI, no pressured speech, no hallucinations. NEUROLOGIC: No FND. CN II-XII grossly intact. Results & Data Results & Data ([facility]) Vital Signs (Past 12 Hours) Vital Signs Temp Pulse Pulse Pulse Resp BP BP 04/06/21 03:22 36.4 C L 75 20 112/66 04/05/21 22:34 36.4 C L 82 110/66 04/05/21 22:08 71 16 110/80 04/05/21 21:09 69 18 103/58 L Pulse Ox 03/02/22 03:22 100 04/05/21 22:34 89 L 04/05/21 22:08 95 04/05/21 21:09 98 Resident Activity Tracking Resident Involvement: Resident Care Provided Care Provided: Adult Hospital Medicine
[2021-04-06] MEDS: ASPIRIN 81 MG ECTAB PO SCH (07:41)
[2021-04-06] MEDS: PANTOprazole 40 MG TAB PO SCH (07:42)
[2021-04-06] MEDS: METOPROLOL SUCC 25MG EXT REL TAB PO SCH (07:42)
[2021-04-06] MEDS ORDERED: MELOXICAM 7.5 MG TAB PO SCH (09:00)
[2021-04-06 10:05] LABS: Adenovirus F 40/41 PCR Not Detected (NotDetected); Astrovirus PCR Not Detected (NotDetected); Campylobacter PCR Not Detected (NotDetected); Clostridium diff Toxin A/B PCR Not Detected (NotDetected); Cryptosporidium PCR Not Detected (NotDetected); Cyclospora cayetanensis PCR Not Detected (NotDetected); Entamoeba histolytica PCR Not Detected (NotDetected); Enteroaggregative E.coli(EAEC) Not Detected (NotDetected); Enteropathogenic E.coli (EPEC) Not Detected (NotDetected); Enterotoxigenic E.coli (ETEC) Not Detected (NotDetected); Giardia lamblia PCR Not Detected (NotDetected); Norovirus GI/GII PCR Not Detected (NotDetected); Plesiomonas shigelloides PCR Not Detected (NotDetected); Rotavirus A PCR Not Detected (NotDetected); Salmonella PCR Not Detected (NotDetected); Sapovirus PCR Not Detected (NotDetected); Shiga-like Toxin E.coli (STEC) Not Detected (NotDetected); Shigella/Enteroinvasive E.coli Not Detected (NotDetected); Vibrio cholerae PCR Not Detected (NotDetected); Vibrio species PCR Not Detected (NotDetected); Yersinia enterocolitica PCR Not Detected (NotDetected)
[2021-04-06 10:56] LABS: BUN Creatinine Ratio 24.6 (10-20); Calcium 8.6 mg/dl (8.5-10.1); Creatinine Clr Calc Pharmacy 51.4 ml/min; Est GFR (African American) 66.2 ml/min; Est GFR (Non-African American) 57.1 ml/min; Potassium 4.7 mmol/L (3.5-5.1)
[2021-04-06] MEDS ORDERED: SODIUM CHLORIDE 0.9% 1000ML 500 ML IV ONE (13:32)
--- NOTE | 2021-04-06 14:02 | XCELERA ---
[id number]
[2021-04-06] MEDS: SODIUM CHLORIDE 0.9% 500 ML IV SCH (16:06)
--- NOTE | 2021-04-06 16:17 | Electrocardiogram Report ---
Test Reason : Blood Pressure : / mmHG Vent. Rate : 070 BPM Atrial Rate : 110 BPM P-R Int : 000 ms QRS Dur : 104 ms QT Int : 364 ms P-R-T Axes : 000 -51 025 degrees QTc Int : 393 ms Atrial fibrillation Left axis deviation Inferior infarct , age undetermined Abnormal ECG When compared with ECG of 08-FEB-2007 12:35, No significant change was found Confirmed by Dung Edgar ([id number]) on 04/06/2021 4:17:28 PM Referred By: Mohan Sanches Confirmed By:Dung Edgar
--- NOTE | 2021-04-06 17:47 | Billing Data ---
Date of Service April 06, 2021 Coding Level of Care Code 50890 Subseq Hosp Care Lvl 3
[2021-04-06] MEDS ORDERED: SODIUM CHLORIDE 0.9% 1000ML 500 ML IV SCH (20:45)
[2021-04-06] MEDS ORDERED: Nursing to Pharmacy Communication SCH (20:45)
[2021-04-06] MEDS: SODIUM CHLORIDE 0.9% 1000ML 1,000 ML IV SCH (21:29)
--- NOTE | 2021-04-06 22:06 | Billing Data ---
Date of Service April 06, 2021 Coding Level of Care Code 39333 Initial Inpt Care Lvl 3
[2021-04-07] MEDS: SODIUM CHLORIDE 0.9% 500 ML IV SCH (02:01)
[2021-04-07] MEDS: SODIUM CHLORIDE 0.9% 1000ML 1,000 ML IV SCH ×3 (04:49→21:41)
--- NOTE | 2021-04-07 07:09 | Discharge Summary ---
Date of Service April 07, 2021 Admission HPI Per Admitting Provider Bassem Bradley is an 80yo male with PMHx significant for HFpEF (unknown EF), a- fib (on BB but no AC), HTN, HLD, vitamin D deficiency, and hearing loss who presented to [facility] ED on 04/05 for low blood pressure and generalized weakness in context of diarrhea x10 days. Patient reports diarrhea, without blood or mucus, 2-4x per day for last 10 days. Patient has also had decreased PO intake per . He usually is very active and is proficient in all ADLs/iADLs but fell at home (without LOC or trauma) due to weakness. He was tested by PCP (Dr. Sheppard) for c. diff and negative for the gene on 04/02. Due to persistant symptoms and low blood pressure, Dr. Christianson asked him to present to ED. No associated fever/chills. No recent respiratory symptoms or urinary symptoms. No rash. No recent travel or consumption of well water. In the ED the patient was initially hypotensive to 78/50 and tachycardic to 112. He received 1L LR bolus - HR down to 50s-70s and BP up to 120/60. EKG showed a- fib without RVR, and with sign of previous inferior infarct. Laboratory evaluation was significant for WBC 10.83 with neutrophilic predominance and left shift, Hgb 12.4, Na 128, K 6.3, Cr 1.65, BUN 39, Troponin 0.12. After LR bolus, Na improved to 130, K down to 5.8, Cr down to 1.48. Patient had CT A/P which showed mild wall thickening of several distal ileal loops with associated mesenteric stranding, suspicious for nonspecific enteritis. Principal Diagnosis Viral gastroenteritis Discharge Exam GENERAL: A&Ox3. NAD. HEENT: PERRL, EOMI. Moist mucous membranes. CHEST/LUNGS: CTAB A/P. No crackles, wheezes, rales, rhonchi. HEART: RRR. No m/g/r. No carotid bruits. ABDOMEN: NT/ND, soft. BS+ x4 EXTREMITIES: No cyanosis, no clubbing, no edema. SKIN: Warm and dry. No rashes or lesions. PSYCHIATRIC: Euthymic affect, no SI, no pressured speech, no hallucinations. NEUROLOGIC: No FND. CN II-XII grossly intact. Discharge Data Allergies Allergy/AdvReac Type Severity Reaction Status Date / Time No Known Allergies Allergy Unknown Verified 04/05/21 17:36 Consultations 04/05/21 20:23 ED Decision to Admit Stat Ordered Studies 04/05/21 19:08 CT abd pelvis wo con Stat Hospital Course (1) Diarrhea: Bassem Bradley is an 80yo male with PMHx significant for HFpEF (unknown EF), a-fib (on BB but no AC), HTN, HLD, vitamin D deficiency, and hearing loss who presented to [facility] ED with diarrhea, LAKSHMI and electrolyte abnormalities. Diarrhea; Dehydration; Generalized Weakness - Suspect that enteritis (most likely viral) with associated diarrhea and dehydration is root cause of most, if not all, current acute problems. Patient already showing improvement with IVFs. However he reportedly has fallen several times in last few months and may have a certain measure of chronic ambulatory dysfunction. - Stool PCR testing negative - IV fluids for rehydration - PT/OT recommending inpatient LAKSHMI; Hyperkalemia -- both now resolved with IVF - Suspect pre-renal injury and associated hyperkalemia 2/2 above. Home diuretics and VINICIUS-I likely contributing to above -- holding at this time. - continue IVFs as stated abov - hold home Lisinopril, Lasix, Metolazone, Spironolactone and Mobic - would consider consolidating home regimen to reduce risk of LAKSHMI/electrolyte abnormalities - defer to primary team and PCP/Concept Artist - hold home potassium - Monitor BMP Hyponatremia - Initially suspect hypovolemic hypotonic hyponatremia secondary to GI infection -- however, persistent despite IVF - Na 128 --> 130 after IVF bolus --> 129 on mIVF - Due to persistent hyponatremia despite IVF, check urine urea and urine creatinine to calculate fractional excretion of urea - FENa not indicated due to diuretic use - Continue IVF as above - Continue to monitor BMP Elevated Troponin -- downtrended - Troponin 0.12 but no chest pain and no ST/T wave changes on EKG. Suspect Type II NSTEMI due to dehydration. - Downtrended after IVF HFpEF; Permanent A-fib - With unknown last EF - none in EMR. Sees Dr. Edgar. Refuses anti-coagulation per notes by Dr. Edgar, despite high CHADS-VASc score. - ordered TTE to ensure that patient can tolerate IVFs - continue home Aspirin and Toprol XL 12.5mg GERD - Protonix per hospital formulary FEN/GI: heart-healthy diet, NSS @125cc/hr DVT Prophylaxis: Lovenox 30mg SQ Q24H (reduced dose due to advanced age and LAKSHMI) Code Status: full code Disposition: med/surg with tele (2) Dehydration: (3) Ambulatory dysfunction: (4) Atrial fibrillation: (5) Diastolic CHF: (6) Hyponatremia: (7) Hyperkalemia: (8) Acute kidney injury: (9) Elevated troponin: (10) Hypertension: Discharge Plan Discharge Items Reason For Visit: LOW BLOOD PRESSURE Follow-up/Referrals: Mohan Sanches, [Primary Care Provider] - Medications and DC Order Prescriptions: No Action metolazone 5 mg tablet 5 mg PO QAM Qty: 30 RF: 11 spironolactone 25 mg tablet 25 mg PO DAILY Qty: 90 RF: 3 potassium chloride 20 mEq tablet,ER particles/crystals 60 meq PO .COMPLEX Qty: 450 RF: 3 furosemide 40 mg tablet 40 mg PO BID Qty: 180 RF: 3 omeprazole 20 mg capsule,delayed release(DR/EC) 20 mg PO QAM Qty: 90 RF: 3 metoprolol succinate 25 mg tablet extended release 24 hr 12.5 mg PO DAILY Qty: 45 RF: 1 lisinopril 5 mg tablet 5 mg PO QAM Qty: 90 RF: 3 aspirin 81 mg tablet,delayed release (DR/EC) 81 mg PO DAILY RF: 0 flunisolide 25 mcg (0.025 %) spray,non-aerosol 1 sprays intranasal ONCE PRN (Reason: allergy symptoms) RF: 0 meloxicam 7.5 mg tablet 7.5 mg PO DAILY 14 Days Qty: 14 RF: 0 multivitamin Tablet 1 tab PO BID RF: 0 Admission Data Admit Date/Time: 04/05/21 21:42 Attending Provider: Jameel Tafoya Admit Provider: Catrachito Ely Primary Care Provider: Mohan Sanches Other Providers: Misael Patel
[2021-04-07 07:20] LABS: Hematocrit (blood only) 28.9 % (42-52); Hemoglobin 9.9 g/dL (14.0-18.0); Mean Corpuscular Hemoglobin 31.1 pg (25-34); Mean Corpuscular Hgb Conc 34.3 g/dL (32-36); Mean Corpuscular Volume 90.9 fL (80-100); Mean Platelet Volume 8.4 fL (7.4-10.4); Platelet Count 166 K/uL (130-400); RDW Coefficient of Variation 14.9 % (11.5-14.5); RDW Standard Deviation 49.5 fL (36.4-46.3); Red Blood Count 3.18 M/uL (4.7-6.1); White Blood Count 5.92 K/uL (4.8-10.8)
[2021-04-07 07:42] LABS: BUN Creatinine Ratio 21.4 (10-20); Calcium 7.2 mg/dl (8.5-10.1); Creatinine Clr Calc Pharmacy 58.9 ml/min; Est GFR (Non-African American) 67.3 ml/min; Magnesium 1.7 mg/dl (1.7-2.4); Phosphorus 2.8 mg/dl (2.5-4.9)
[2021-04-07 07:45] LABS: Acanthocytes 1+; Basophils # (auto) 0.01 K/uL (0-0.2); Basophils % (auto) 0.2 %; Eosinophils # (auto) 0.11 K/uL (0-0.5); Eosinophils % (auto) 1.9 %; Immature Granulocytes # (auto) 0.02 K/uL (0.00-0.02); Immature Granulocytes % (auto) 0.3 %; Lymphocytes # (auto) 0.93 K/uL (1.2-3.4); Lymphocytes % (auto) 15.7 %; Monocytes # (auto) 0.47 K/uL (0.11-0.59); Monocytes % (auto) 7.9 %; Neutrophils # (auto) 4.38 K/uL (1.4-6.5)
[2021-04-07] MEDS: PANTOprazole 40 MG TAB PO SCH (08:24)
[2021-04-07] MEDS: MULTIVITAMIN TAB PO SCH ×2 (08:24→21:43)
[2021-04-07] MEDS: METOPROLOL SUCC 25MG EXT REL TAB PO SCH (08:24)
[2021-04-07] MEDS: ASPIRIN 81 MG ECTAB PO SCH (08:25)
--- NOTE | 2021-04-07 10:40 | Hospitalist Progress Note ---
Date of Service April 07, 2021 Assessment & Plan (1) Diarrhea: Plan: Bassem Bradley is an 80yo male with PMHx significant for HFpEF (unknown EF), a- fib (on BB but no AC), HTN, HLD, vitamin D deficiency, and hearing loss who presented to [facility] ED with diarrhea, LAKSHMI and electrolyte abnormalities. Diarrhea; Dehydration; Generalized Weakness - Suspect that enteritis (most likely viral) with associated diarrhea and dehydration is root cause of most, if not all, current acute problems. Patient already showing improvement with IVFs. However he reportedly has fallen several times in last few months and may have a certain measure of chronic ambulatory dysfunction. - Stool PCR testing negative - IV fluids for rehydration - PT/OT recommending inpatient rehabilitation -- he is reasonably able to ambulate with his walker, however he does admit that at home he has about 14 steps that he cannot avoid as his bedroom is upstairs and his kitchen is downstairs -Lives with a sister but he says she would not be able to help him out in any significant way -Case management to assist -Continue to monitor improvements with physical therapy, possible that he may improve enough so as to not need inpatient rehabilitation LAKSHMI; Hyperkalemia -- both now resolved with IVF - Suspect pre-renal injury and associated hyperkalemia 2/2 above. Home diuretics and VINICIUS-I likely contributing to above -- holding at this time. - continue IVFs as stated abov - hold home Lisinopril, Lasix, Metolazone, Spironolactone and Mobic - would consider consolidating home regimen to reduce risk of LAKSHMI/electrolyte abnormalities - defer to primary team and PCP/Pass Worker - hold home potassium - Monitor BMP Hyponatremia -- improving - Initially suspect hypovolemic hypotonic hyponatremia secondary to GI infection -- however, persistent despite IVF - Na 128 --> 130 after IVF bolus --> 129 on mIVF - Due to persistent hyponatremia despite IVF, check urine urea and urine creatinine to calculate fractional excretion of urea - FENa not indicated due to diuretic use - Most likely cause continues to be hypovolemic hyponatremia in the setting of mutliple days with infectious diarrhea - Continue IVF as above - Continue to monitor BMP Elevated Troponin -- downtrended - Troponin 0.12 but no chest pain and no ST/T wave changes on EKG. Suspect Type II NSTEMI due to dehydration. - Downtrended after IVF HFpEF; Permanent A-fib - With unknown last EF - none in EMR. Sees Dr. Edgar. Refuses anti-coagulation per notes by Dr. Edgar, despite high CHADS-VASc score. - TTE showing normal LV function with EF of 60 to 65%, severe aortic stenosis, mild to moderate tricuspid regurg - continue home Aspirin and Toprol XL 12.5mg GERD - Protonix per hospital formulary FEN/GI: heart-healthy diet, NSS @125cc/hr DVT Prophylaxis: Lovenox 30mg SQ Q24H (reduced dose due to advanced age and LAKSHMI) Code Status: full code Disposition: med/surg (2) Dehydration: (3) Ambulatory dysfunction: (4) Atrial fibrillation: (5) Diastolic CHF: (6) Hyponatremia: (7) Hyperkalemia: (8) Acute kidney injury: (9) Elevated troponin: (10) Hypertension: Admission and Anticipated Discharge Date Admission Date: April 05, 2021 Supervising Physician Co-Signing Physician Notes I personally examined the patient and verified all ho points of history and exam, discussed case, and agree with decision making with Dr Cueto sleeping comfortably. case d/w dr cueto extensively. pt does not stir to voice when i'm in the room. vitals noted resting comfortably nad breathing unlabored no accessory muscles good effort skin no rashes no pallor or icterus neuro no focal deficits or asymmetry at rest dehydration/LAKSHMI/demand ischemia elevated troponin/mild hypotension - all appears related to viral GE - which has improved. unfortunately weak - doesn't feel he would be safe at home. continue PT/OT inpt while looking for rehab/SNF -- hopes that since he came in acutely ill/dehydrated/hypotensive - that possibly as current situation improves he might get strong enough to go home - but again currently rehab/subacute rehab would be goal for discharge Subjective No acute events overnight. Patient ambulating from bathroom to bed using his walker when I arrived. Did not need assistance from myself or nurse. He reports that he has had a few loose bowel movements in the last 24 hours, about 3. This is improving from prior. His appetite is better and he was able to finish his breakfast this morning. Denies fever, chills, nausea, vomiting, abdominal pain, chest pain, palpitations, shortness of breath. Review of Systems Review of Systems: per subjective Physical Exam Physical Exam: GENERAL: A&Ox3. NAD. HEENT: PERRL, EOMI. Moist mucous membranes. HEART: RRR. No m/g/r. No carotid bruits. ABDOMEN: NT/ND, soft. BS+ x4 SKIN: Warm and dry. No rashes or lesions. PSYCHIATRIC: Euthymic affect, no SI, no pressured speech, no hallucinations. NEUROLOGIC: No FND. CN II-XII grossly intact. Results & Data Results & Data ([facility]) Vital Signs (Past 12 Hours) Vital Signs Temp Pulse Pulse Resp BP BP Pulse Ox 04/07/21 07:49 64 04/07/21 07:37 36.5 C 79 18 104/65 92 04/07/21 04:28 36.6 C 62 20 100/61 94 04/06/21 23:00 36.4 C L 60 18 113/70 92 Resident Activity Tracking Resident Involvement: Resident Care Provided Care Provided: Adult Hospital Medicine
--- NOTE | 2021-04-07 13:05 | Billing Data ---
Date of Service April 07, 2021 Coding Level of Care Code 62227 Subseq Hosp Care Lvl 1
[2021-04-07] MEDS: ENOXAPARIN INJ 30 MG/0.3 ML SYR SQ SCH (21:47)
[2021-04-08] MEDS: SODIUM CHLORIDE 0.9% 1000ML 1,000 ML IV SCH ×2 (06:15→14:54)
[2021-04-08] MEDS: METOPROLOL SUCC 25MG EXT REL TAB PO SCH (07:40)
[2021-04-08] MEDS: ASPIRIN 81 MG ECTAB PO SCH (07:41)
[2021-04-08] MEDS: PANTOprazole 40 MG TAB PO SCH (07:41)
[2021-04-08] MEDS: MULTIVITAMIN TAB PO SCH ×2 (07:41→20:12)
--- NOTE | 2021-04-08 07:59 | Hospitalist Progress Note ---
Date of Service April 08, 2021 Assessment & Plan (1) Diarrhea: Plan: Bassem Bradley is an 80yo male with PMHx significant for HFpEF (unknown EF), a- fib (on BB but no AC), HTN, HLD, vitamin D deficiency, and hearing loss who presented to [facility] ED with diarrhea, LAKSHMI and electrolyte abnormalities. Diarrhea; Dehydration; Generalized Weakness - Suspect that enteritis (most likely viral) with associated diarrhea and dehydration is root cause of most, if not all, current acute problems. Patient already showing improvement with IVFs. However he reportedly has fallen several times in last few months and may have a certain measure of chronic ambulatory dysfunction. - Stool PCR testing negative - IV fluids for rehydration - PT/OT recommending inpatient rehabilitation -- he is reasonably able to ambulate with his walker, however he does admit that at home he has about 14 steps that he cannot avoid as his bedroom is upstairs and his kitchen is downstairs -Lives with a sister but he says she would not be able to help him out in any significant way -Case management to assist -Continue to monitor improvements with physical therapy, possible that he may improve enough so as to not need inpatient rehabilitation LAKSHMI; Hyperkalemia -- both now resolved with IVF - Suspect pre-renal injury and associated hyperkalemia 2/2 above. Home diuretics and VINICIUS-I likely contributing to above -- holding at this time. - continue IVFs as stated abov - hold home Lisinopril, Lasix, Metolazone, Spironolactone and Mobic - would consider consolidating home regimen to reduce risk of LAKSHMI/electrolyte abnormalities - defer to primary team and PCP/Sample Maker Original - hold home potassium - Monitor BMP Hyponatremia -- improving - Initially suspect hypovolemic hypotonic hyponatremia secondary to GI infection -- however, persistent despite IVF - Na 128 --> 130 after IVF bolus --> 129 on mIVF - Due to persistent hyponatremia despite IVF, check urine urea and urine creatinine to calculate fractional excretion of urea - FENa not indicated due to diuretic use - Most likely cause continues to be hypovolemic hyponatremia in the setting of mutliple days with infectious diarrhea - Continue IVF as above - Continue to monitor BMP Elevated Troponin -- downtrended - Troponin 0.12 but no chest pain and no ST/T wave changes on EKG. Suspect Type II NSTEMI due to dehydration. - Downtrended after IVF HFpEF; Permanent A-fib - With unknown last EF - none in EMR. Sees Dr. Edgar. Refuses anti-coagulation per notes by Dr. Edgar, despite high CHADS-VASc score. - TTE showing normal LV function with EF of 60 to 65%, severe aortic stenosis, mild to moderate tricuspid regurg - continue home Aspirin and Toprol XL 12.5mg GERD - Protonix per hospital formulary FEN/GI: heart-healthy diet, NSS @125cc/hr DVT Prophylaxis: Lovenox 30mg SQ Q24H (reduced dose due to advanced age and LAKSHMI) Code Status: full code Disposition: med/surg (2) Dehydration: (3) Ambulatory dysfunction: (4) Atrial fibrillation: (5) Diastolic CHF: (6) Hyponatremia: (7) Hyperkalemia: (8) Acute kidney injury: (9) Elevated troponin: (10) Hypertension: Admission and Anticipated Discharge Date Admission Date: April 05, 2021 Results & Data Results & Data ([facility]) Vital Signs (Past 12 Hours) Vital Signs Temp Pulse Resp BP BP Pulse Ox 04/08/21 07:12 37.0 C 62 16 111/62 99 04/08/21 04:00 36.7 C 60 18 102/63 98 04/08/21 00:04 36.5 C 65 18 101/63 94
[2021-04-08 08:39] LABS: BUN Creatinine Ratio 19.1 (10-20); Calcium 7.2 mg/dl (8.5-10.1); Creatinine Clr Calc Pharmacy 68.2 ml/min; Est GFR (African American) 92.3 ml/min; Est GFR (Non-African American) 79.6 ml/min; Magnesium 1.6 mg/dl (1.7-2.4); Phosphorus 2.1 mg/dl (2.5-4.9); Potassium 3.7 mmol/L (3.5-5.1)
[2021-04-08 09:11] LABS: Acanthocytes 1+; Basophils # (auto) 0.01 K/uL (0-0.2); Basophils % (auto) 0.2 %; Eosinophils # (auto) 0.09 K/uL (0-0.5); Eosinophils % (auto) 1.4 %; Hematocrit (blood only) 31.6 % (42-52); Hemoglobin 10.6 g/dL (14.0-18.0); Immature Granulocytes # (auto) 0.02 K/uL (0.00-0.02); Immature Granulocytes % (auto) 0.3 %; Lymphocytes # (auto) 0.92 K/uL (1.2-3.4); Lymphocytes % (auto) 13.8 %; Mean Corpuscular Hemoglobin 30.6 pg (25-34); Mean Corpuscular Hgb Conc 33.5 g/dL (32-36); Mean Corpuscular Volume 91.3 fL (80-100); Mean Platelet Volume 9.3 fL (7.4-10.4); Monocytes # (auto) 0.41 K/uL (0.11-0.59); Monocytes % (auto) 6.2 %; Neutrophils # (auto) 5.21 K/uL (1.4-6.5); Neutrophils % (auto) 78.1 %; Platelet Count 173 K/uL (130-400); RDW Coefficient of Variation 15.4 % (11.5-14.5); RDW Standard Deviation 51.4 fL (36.4-46.3); Red Blood Count 3.46 M/uL (4.7-6.1); White Blood Count 6.66 K/uL (4.8-10.8)
[2021-04-08] MEDS ORDERED: POTASSIUM PHOS 3 MMOL/1 ML INFUSION IV STA (09:42)
[2021-04-08] MEDS ORDERED: POTASSIUM PHOSPHATE 15 MMOL in SODIUM CHLORIDE 0.9% 250 ML IV ONE (10:30)
--- NOTE | 2021-04-08 16:40 | Hospitalist Progress Note ---
Date of Service April 08, 2021 Assessment & Plan (1) Diarrhea: Plan: Bassem Bradley is an 80yo male with PMHx significant for HFpEF (unknown EF), a- fib (on BB but no AC), HTN, HLD, vitamin D deficiency, and hearing loss who presented to [facility] ED with diarrhea, LAKSHMI and electrolyte abnormalities. Diarrhea; Dehydration; Generalized Weakness - Suspect that enteritis (most likely viral) with associated diarrhea and dehydration is root cause of most, if not all, current acute problems. GI sx improved, However he reportedly has fallen several times in last few months and may have a certain measure of chronic ambulatory dysfunction. - PT/OT recommending inpatient rehabilitation -- and unfortunatley he's not really seeming to show much progress with this - making it likely that he will need to go to rehab/SNF LAKSHMI; Hyperkalemia -- both now resolved with IVF - improved. Hyponatremia -- improving - Suspect hypovolemic hypotonic hyponatremia secondary to GI infection - improving Elevated Troponin -- downtrended - Troponin 0.12 but no chest pain and no ST/T wave changes on EKG. Suspect Type II NSTEMI/demand ischemia due to dehydration. - Downtrended after IVF HFpEF; Permanent A-fib - Rate controlled. Refuses anti-coagulation per notes by Dr. Edgar, despite high CHADS-VASc score. - TTE showing normal LV function with EF of 60 to 65%, severe aortic stenosis, mild to moderate tricuspid regurg (HFpEF chronic and currently compensated) - continue home Aspirin and Toprol XL 12.5mg GERD - Protonix per hospital formulary DVT Prophylaxis: Lovenox 30mg SQ Q24H (reduced dose due to advanced age and LAKSHMI) Code Status: full code Disposition: pending rehab/SNF - stable for transfer once available Admission and Anticipated Discharge Date Admission Date: April 05, 2021 Subjective some diarrhea but getting more formed. still weak. Review of Systems Review of Systems: All systems reviewed & are unremarkable except as noted in HPI & below Physical Exam Physical Exam: gen aao pleasant nad heent nc at mmm breathing unlabored no accessory muscles good effort skin no rashes no pallor or icterus neuro no focal deficits Results & Data Results & Data ([facility]) Vital Signs (Past 12 Hours) Vital Signs Temp Pulse Resp BP BP Pulse Ox 04/08/21 15:16 97.9 F 89 20 104/54 L 93 04/08/21 07:12 98.6 F 62 16 111/62 99 PG Care Time/CCT Total # of Minutes Spent Total Time Spent with Patient: Total time spent is greater than 50% in coordination of care (as documented) at patient's floor/unit and/or counseling patient: Coding Level of Care Code 18130 Subseq Hosp Care Lvl 2 Diagnoses Diarrhea R19.7
[2021-04-08] MEDS: LACTATED RINGER'S 1,000 ML IV SCH (17:32)
[2021-04-08] MEDS: ENOXAPARIN INJ 30 MG/0.3 ML SYR SQ SCH (21:03)
[2021-04-09] MEDS: LACTATED RINGER'S 1,000 ML IV SCH (05:32)
[2021-04-09 06:51] LABS: BUN Creatinine Ratio 18.1 (10-20); Calcium 7.1 mg/dl (8.5-10.1); Creatinine Clr Calc Pharmacy 73.1 ml/min; Est GFR (Non-African American) 81.9 ml/min; Potassium 3.4 mmol/L (3.5-5.1)
[2021-04-09 08:00] LABS: Urea Nitrogen, Random Urine 683 mg/dL
--- NOTE | 2021-04-09 08:13 | Hospitalist Progress Note ---
Date of Service April 09, 2021 Assessment & Plan (1) Diarrhea: Plan: Bassem Bradley is an 80yo male with PMHx significant for HFpEF (unknown EF), a- fib (on BB but no AC), HTN, HLD, vitamin D deficiency, and hearing loss who presented to [facility] ED with diarrhea, LAKSHMI and electrolyte abnormalities. Diarrhea; Dehydration; Generalized Weakness - improving - Suspect that enteritis (most likely viral) with associated diarrhea and dehydration is root cause of most, if not all, current acute problems. Patient already showing improvement with IVFs. However he reportedly has fallen several times in last few months and may have a certain measure of chronic ambulatory dysfunction. - Stool PCR testing negative - discontinuing IVF for independent oral intake - PT/OT recommending inpatient rehabilitation -- he is reasonably able to ambulate with his walker, however he does admit that at home he has about 14 steps that he cannot avoid as his bedroom is upstairs and his kitchen is downstairs -Lives with a sister but he says she would not be able to help him out in any significant way -Case management to assist -Continue to monitor improvements with physical therapy, possible that he may improve enough so as to not need inpatient rehabilitation LAKSHMI; Hyperkalemia -- both now resolved with IVF - hold home Lisinopril, Lasix, Metolazone, Spironolactone and Mobic - would consider consolidating home regimen to reduce risk of LAKSHMI/electrolyte abnormalities - hold home potassium - Monitor BMP Hyponatremia -- improving - Initially suspect hypovolemic hypotonic hyponatremia secondary to GI infection , up to 129 - Continue to monitor BMP Elevated Troponin -- resolved HFpEF; Permanent A-fib - With unknown last EF - none in EMR. Sees Dr. Edgar. Refuses anti-coagulation per notes by Dr. Edgar, despite high CHADS-VASc score. - TTE showing normal LV function with EF of 60 to 65%, severe aortic stenosis, mild to moderate tricuspid regurg - continue home Aspirin and Toprol XL 12.5mg GERD - Protonix per hospital formulary FEN/GI: heart-healthy diet, encourage PO fluid intake DVT Prophylaxis: Lovenox 30mg SQ Q24H (reduced dose due to advanced age and LAKSHMI) Code Status: full code Disposition: med/surg, pending dispo to inpatient rehab for climbing strength (2) Dehydration: (3) Ambulatory dysfunction: (4) Atrial fibrillation: (5) Diastolic CHF: (6) Hyponatremia: (7) Hyperkalemia: (8) Acute kidney injury: (9) Elevated troponin: (10) Hypertension: Admission and Anticipated Discharge Date Admission Date: April 05, 2021 Supervising Physician Co-Signing Physician Notes I personally examined the patient and verified all ho points of history and exam, discussed case, and agree with decision making with Dr Rodríguez sleeping comfortably. still waitign on placement vitals noted resting comfortably nad breathing unlabored no accessory muscles good effort skin no rashes no pallor or icterus neuro no focal deficits or asym metry at rest dehydration/LAKSHMI/demand ischemia elevated troponin/mild hypotension - all appears related to viral GE - which has improved. unfortunately weak - waiting on SNF/rehab. Subjective feeling well this morning. no complaints of abdominal pain. has been up to the bathroom on his own. on and off diarrhea that is firming. Review of Systems Review of Systems: All systems reviewed & are unremarkable except as noted in Subjective Physical Exam Physical Exam: Constitutional: in no apparent distress, sitting comfortably in bed. Eyes: EOMI, pupils equal and reactive bilaterally, no scleral icterus Cardiac: RRR, no murmurs, gallops or rubs. Normal S1, S2 Pulm: CTA BL, no wheezes, rhonchi, crackles or rubs, moving air well throughout both lungs Abd: soft, nontender, nondistended, normal bowel sounds, no rebound or guarding Extremities: 2+ peripheral pulses, no edema Neuro: no focal deficits, moving all 4 limbs, A&Ox3 Results & Data Results & Data ([facility]) Vital Signs (Past 12 Hours) Vital Signs Temp Pulse Resp BP Pulse Ox 04/09/21 07:45 36.4 C L 65 16 121/65 96 04/08/21 22:02 36.9 C 74 18 132/65 93 Laboratory Results Laboratory Results WBC 6.66 K/uL (4.8-10.8) 04/08/21 08:06 RBC 3.46 M/uL (4.7-6.1) L 04/08/21 08:06 Hgb 10.6 g/dL (14.0-18.0) L 04/08/21 08:06 Hct 31.6 % (42-52) L 04/08/21 08:06 MCV 91.3 fL (80-100) 04/08/21 08:06 MCH 30.6 pg (25-34) 04/08/21 08:06 MCHC 33.5 g/dL (32-36) 04/08/21 08:06 RDW Std Deviation 51.4 fL (36.4-46.3) H 04/08/21 08:06 RDW Coeff of Thomas 15.4 % (11.5-14.5) H 04/08/21 08:06 Plt Count 173 K/uL (130-400) 04/08/21 08:06 MPV 9.3 fL (7.4-10.4) 04/08/21 08:06 Immature Gran % (Auto) 0.3 % 04/08/21 08:06 Neut % (Auto) 78.1 % 04/08/21 08:06 Lymph % (Auto) 13.8 % 04/08/21 08:06 [place] % (Auto) 6.2 % 04/08/21 08:06 Eos % (Auto) 1.4 % 04/08/21 08:06 Baso % (Auto) 0.2 % 04/08/21 08:06 Neut # (Auto) 5.21 K/uL (1.4-6.5) 04/08/21 08:06 Lymph # (Auto) 0.92 K/uL (1.2-3.4) L 04/08/21 08:06 [place] # (Auto) 0.41 K/uL (0.11-0.59) 04/08/21 08:06 Eos # (Auto) 0.09 K/uL (0-0.5) 04/08/21 08:06 Baso # (Auto) 0.01 K/uL (0-0.2) 04/08/21 08:06 Immature Gran # (Auto) 0.02 K/uL (0.00-0.02) 04/08/21 08:06 Echinocytes 1+ 04/06/21 05:21 Acanthocytes (Spur) 1+ 04/08/21 08:06 Sodium 134 mmol/L (136-145) L 04/09/21 06:04 Potassium 3.4 mmol/L (3.5-5.1) L 04/09/21 06:04 Chloride 108 mmol/L (98-107) H 04/09/21 06:04 Carbon Dioxide 22 mmol/L (21-32) 04/09/21 06:04 Anion Gap 4 (3-11) 04/09/21 06:04 BUN 15 mg/dl (6-23) 04/09/21 06:04 Creatinine 0.83 mg/dl (0.6-1.4) 04/09/21 06:04 Est Cr Clr Drug Dosing 73.1 ml/min 04/09/21 06:04 Est GFR ( Amer) 95.0 ml/min 04/09/21 06:04 Est GFR (Non-Af Amer) 81.9 ml/min 04/09/21 06:04 BUN/Creatinine Ratio 18.1 (10-20) 04/09/21 06:04 Glucose 78 mg/dl (70-99(Fasting)) 04/09/21 06:04 Osmolality 282 mOsm/kg (280-300) 04/06/21 05:25 Lactate 1.2 mmol/L (0.4-2.0) 04/05/21 17:00 Calcium 7.1 mg/dl (8.5-10.1) L 04/09/21 06:04 Phosphorus 2.1 mg/dl (2.5-4.9) L 04/08/21 08:06 Magnesium 1.6 mg/dl (1.7-2.4) L 04/08/21 08:06 Total Bilirubin 0.6 mg/dl (0.2-1.0) 04/05/21 17:00 AST 19 U/L (13-39) 04/05/21 17:00 ALT 15 U/L (7-52) 04/05/21 17:00 Alkaline Phosphatase 70 U/L (34-104) 04/05/21 17:00 Troponin I 0.09 ng/ml (0-0.04) H* 04/06/21 05:21 Total Protein 6.9 gm/dl (6.0-8.3) 04/05/21 17:00 Albumin 3.5 gm/dl (3.4-5.0) 04/05/21 17:00 Globulin 3.4 gm/dl (2.5-4.0) 04/05/21 17:00 Albumin/Globulin Ratio 1.0 (0.9-2) 04/05/21 17:00 Lipase 8 U/L (11-82) L 04/05/21 17:00 Ur Random Creatinine 73.8 mg/dl 04/08/21 04:07 Ur Random Urea Nitrogn 683 mg/dL 04/08/21 04:07 Stl C. cayetanensis PCR Not Detected (NotDetected) 04/06/21 07:30 Stool Rotavirus A PCR Not Detected (NotDetected) 04/06/21 07:30 Stl Adenov F 40/41 PCR Not Detected (NotDetected) 04/06/21 07:30 Stool Astrovirus (PCR) Not Detected (NotDetected) 04/06/21 07:30 Stool Campylobacter PCR Not Detected (NotDetected) 04/06/21 07:30 Stl C. diff Tox B Gene Cancelled 04/06/21 07:30 Stl C. diff Tox A/B PCR Not Detected (NotDetected) 04/06/21 07:30 Stool Cryptosporidium PCR Not Detected (NotDetected) 04/06/21 07:30 Stl E.coli Shiga Tox PCR Not Detected (NotDetected) 04/06/21 07:30 Stl Enterotoxigenic E PCR Not Detected (NotDetected) 04/06/21 07:30 Stool EPEC (PCR) Not Detected (NotDetected) 04/06/21 07:30 Stool EAEC (PCR) Not Detected (NotDetected) 04/06/21 07:30 Stl E. histolytica PCR Not Detected (NotDetected) 04/06/21 07:30 Stool Giardia Lamblia PCR Not Detected (NotDetected) 04/06/21 07:30 Stool Salmonella PCR Not Detected (NotDetected) 04/06/21 07:30 Stool Sapovirus (PCR) Not Detected (NotDetected) 04/06/21 07:30 Stl P. shigelloides PCR Not Detected (NotDetected) 04/06/21 07:30 Stl Shigella/EIEC PCR Not Detected (NotDetected) 04/06/21 07:30 St Y.enterocolitica PCR Not Detected (NotDetected) 04/06/21 07:30 Stool Vibrio (PCR) Not Detected (NotDetected) 04/06/21 07:30 Stl Vibrio cholerae PCR Not Detected (NotDetected) 04/06/21 07:30 Stl Norovirus GI/GII PCR Not Detected (NotDetected) 04/06/21 07:30 Giardia Antigen Cancelled 04/06/21 07:30 SARS-CoV-2, RNA, NAAT NEGATIVE (NEGATIVE) 04/05/21 19:13 Impressions Abdomen/Pelvis CT 04/05/21 19:08 CT OF THE ABDOMEN AND PELVIS WITHOUT CONTRAST CLINICAL HISTORY: Diarrhea. COMPARISON STUDY: No previous studies for comparison. TECHNIQUE: Axial images of the abdomen and pelvis were obtained without IV contrast. Images were reviewed in the axial, sagittal, and coronal planes. Automated exposure control was utilized for the study. A dose lowering technique was utilized adhering to the principles of ALARA. FINDINGS: Bilateral gynecomastia is incidentally noted. Moderate cardiomegaly is present. Lung bases are unremarkable. There is a small hiatal hernia. Evaluation of the abdomen and pelvis is suboptimal given lack of IV contrast and motion artifact. Unenhanced images of liver, spleen, adrenal glands, right kidney and pancreas are unremarkable. 2 mm nonobstructing left renal calculus is present. There is no hydronephrosis. No ureteral calculi identified although evaluation of the distal ureter is compromised by streak artifact from bilateral hip arthroplasties. IVC filter is in place. No biliary or pancreatic ductal dilatation. No peripancreatic or pericholecystic infiltration. A left-sided spigelian hernia contains multiple small bowel loops. A portion of the descending colon slightly extends into the defect. There is no resultant bowel obstruction. There is suspected mild wall thickening of several distal ileal loops with mild associated mesenteric stranding. Colonic diverticulosis without evidence for acute diverticulitis. The appendix is normal. No acute fracture or suspicious lesion is identified within visualized skeletal structures. IMPRESSION: 1. Suspected mild wall thickening of several distal ileal loop with mild associated mesenteric stranding. This represents a nonspecific enteritis. 2. Left-sided spigelian hernia which contains multiple small bowel loops and a small portion of the descending colon. No resultant bowel obstruction. 3. Suboptimal evaluation of the abdomen given motion artifact and lack of IV contrast. 4. Small hiatal hernia. 5. 2 mm left renal calculus. No hydronephrosis. No ureteral calculi. ACT 112: Negative or not required by law. Electronically signed by: Huber Tee M.D. 04/05/2021 7:48 PM Resident Activity Tracking Resident Involvement: Resident Care Provided Care Provided: Adult [facility] Medicine
[2021-04-09] MEDS ORDERED: POTASSIUM CHLORIDE CRTAB 20 MEQ TABCR PO STA (09:14)
[2021-04-09] MEDS: PANTOprazole 40 MG TAB PO SCH (09:29)
[2021-04-09] MEDS: METOPROLOL SUCC 25MG EXT REL TAB PO SCH (09:29)
[2021-04-09] MEDS: MULTIVITAMIN TAB PO SCH ×2 (09:29→21:22)
[2021-04-09] MEDS: ASPIRIN 81 MG ECTAB PO SCH (09:30)
--- NOTE | 2021-04-09 17:23 | Billing Data ---
Date of Service April 09, 2021 Coding Level of Care Code 67074 Subseq Hosp Care Lvl 1
[2021-04-09] MEDS: ENOXAPARIN INJ 30 MG/0.3 ML SYR SQ SCH (21:22)
[2021-04-10] MEDS: MULTIVITAMIN TAB PO SCH ×2 (09:03→20:22)
[2021-04-10] MEDS: PANTOprazole 40 MG TAB PO SCH (09:04)
[2021-04-10] MEDS: METOPROLOL SUCC 25MG EXT REL TAB PO SCH (09:04)
[2021-04-10] MEDS: ASPIRIN 81 MG ECTAB PO SCH (09:04)
--- NOTE | 2021-04-10 11:14 | Hospitalist Progress Note ---
Date of Service April 10, 2021 Assessment & Plan (1) Diarrhea: Plan: Bassem Bradley is an 80yo male with PMHx significant for HFpEF (unknown EF), a- fib (on BB but no AC), HTN, HLD, vitamin D deficiency, and hearing loss who presented to [facility] with diarrhea, LAKSHMI and electrolyte abnormalities. Diarrhea; Dehydration; Generalized Weakness - improving - Suspect that enteritis (most likely viral) with associated diarrhea and dehydration is root cause of acute problems. However he reportedly has fallen several times in last few months and may have a certain measure of chronic ambulatory dysfunction. - PT/OT recommending inpatient rehabilitation -- he is reasonably able to ambulate with his walker, however he does admit that at home he has about 14 steps that he cannot avoid as his bedroom is upstairs and his kitchen is downstairs -Lives with a sister but he says she would not be able to help him out in any significant way -Case management to assist -Continue to monitor improvements with physical therapy, possible that he may improve enough so as to not need inpatient rehabilitation HFpEF; Permanent A-fib - With unknown last EF - none in EMR. Sees Dr. Edgar. Refuses anti-coagulation per notes by Dr. Edgar, despite high CHADS-VASc score. - TTE showing normal LV function with EF of 60 to 65%, severe aortic stenosis, mild to moderate tricuspid regurg - continue home Aspirin and Toprol XL 12.5mg GERD - Protonix per hospital formulary FEN/GI: heart-healthy diet, encourage PO fluid intake DVT Prophylaxis: Lovenox 30mg SQ Q24H (reduced dose due to advanced age and LAKSHMI) Code Status: full code Disposition: med/surg, pending dispo to inpatient rehab for climbing strength with stairs at home (2) Dehydration: (3) Ambulatory dysfunction: (4) Atrial fibrillation: (5) Diastolic CHF: (6) Hyponatremia: (7) Hyperkalemia: (8) Acute kidney injury: (9) Elevated troponin: (10) Hypertension: Admission and Anticipated Discharge Date Admission Date: April 05, 2021 Supervising Physician Co-Signing Physician Notes I personally examined the patient and verified all ho points of history and exam, discussed case, and agree with decision making with Dr Rodríguez again sleeping comfortably. still waiting on placement vitals noted resting comfortably nad breathing unlabored no accessory muscles good effort skin no rashes no pallor or icterus neuro no focal deficits or asymmetry at rest dehydration/LAKSHMI/demand ischemia elevated troponin/mild hypotension - all appears related to viral GE - which has improved. unfortunately weak - waiting on SNF/rehab. Subjective resting comfortably this morning. no acute events overnight. no complaints. eating and drinking well. Review of Systems Review of Systems: All systems reviewed & are unremarkable except as noted in Subjective Physical Exam Physical Exam: Constitutional: in no apparent distress, sitting comfortably in bed. Eyes: EOMI, pupils equal and reactive bilaterally, no scleral icterus Cardiac: RRR, no murmurs, gallops or rubs. Normal S1, S2 Pulm: CTA BL, no wheezes, rhonchi, crackles or rubs, moving air well throughout both lungs Abd: soft, nontender, nondistended, normal bowel sounds, no rebound or guarding Extremities: 2+ peripheral pulses, no edema Neuro: no focal deficits, moving all 4 limbs, A&Ox3 Results & Data Results & Data ([facility]) Vital Signs (Past 12 Hours) Vital Signs Temp Pulse Resp BP Pulse Ox 04/10/21 09:03 83 110/64 04/10/21 08:04 36.6 C 63 16 114/63 99 Resident Activity Tracking Resident Involvement: Resident Care Provided Care Provided: Adult Hospital Medicine
--- NOTE | 2021-04-10 15:28 | Billing Data ---
Date of Service April 10, 2021 Coding Level of Care Code 75048 Subseq Hosp Care Lvl 1
[2021-04-10] MEDS: ENOXAPARIN INJ 30 MG/0.3 ML SYR SQ SCH (21:00)
--- NOTE | 2021-04-11 06:35 | Hospitalist Progress Note ---
Date of Service April 11, 2021 Assessment & Plan (1) Diarrhea: Plan: Bassem Bradley is an 80yo male with PMHx significant for HFpEF, permanent atrial fibrillation not on AC, HTN, HLD, vitamin D deficiency, and hearing loss who presented to [facility] with diarrhea, subsequently found to have a mild LAKSHMI and generalized weakness/deconditioning requiring evaluations by PT, OT. Generalized Weakness / Deconditioning -- improving - Appreciated early and throughout admission. Suspect secondary to enterocolitis (now resolved) that led to dehydration. - However, patient has reportedly fallen several times in last few months too - raising concerns for chronic ambulatory dysfunction - PT/OT Consulted: Recommend inpatient rehabilitation -- search / placement ongoing - Special considerations regarding his living situation: -Has to go up steps to his bedroom; kitchen is downstairs -Lives with a sister but he says she would not be able to help him out in any significant way -Continue to monitor improvements with physical therapy; suspect he will still need rehab at this time Diarrhea -- resolved - Several weeks' worth of diarrhea present on admission, that subsequently res olved while here - Suspect likely secondary to viral enterocolitis - Stool PCR returned mckee-negative for pathogenic bacteria, including C. diff - Encourage hydration; can consider loperamide p.r.n. if recurrs given negative infectious w/u Prerenal LAKSHMI -- resolved - Noted on admission BUN 38 / Cr 1.48 in setting of recent diarrhea -- resolved s/p IVF, PO intake - Baseline Cr 0.8 - 1.0 on review of records Permanent Atrial Fibrillation - Rate controlled while here - Follows with Dr. Edgar; notes reviewed, which reveal that patient refuses anti-coagulation despite high [id number] score. HFpEF -- previous EF unknown - Euvolemic on exam. Asymptomatic. - TTE showing normal LV function with EF of 60 to 65%, severe aortic stenosis, mild to moderate tricuspid regurgitation - Continue Toprol XL 12.5mg, ASA GERD - Protonix per hospital formulary FEN/GI: heart-healthy diet, encourage PO fluid intake DVT Prophylaxis: Lovenox 30mg SQ Q24H (reduced dose due to advanced age and LAKSHMI) Disposition: med/surg, pending dispo to inpatient rehab for climbing strength with stairs at home Code Status: FULL CODE (2) Dehydration: (3) Ambulatory dysfunction: (4) Atrial fibrillation: (5) Diastolic CHF: (6) Hyponatremia: (7) Hyperkalemia: (8) Acute kidney injury: (9) Elevated troponin: (10) Hypertension: Admission and Anticipated Discharge Date Admission Date: April 05, 2021 Supervising Physician Co-Signing Physician Notes Resident Physician Supervision Note: I independently interviewed and examined the patient and verified the ho history and physical, reviewed labs and image studies and agree with resident Dr. Bianchi findings and care plan. Subjective Patient seen at the bedside. Denies any pain. Says his bowels have greatly improved since he was first admitted. Still reports feeling weak. No nausea or vomiting. Appetite strong. No chest pain, palpitations, shortness of breath. Review of Systems Review of Systems: As per HPI Physical Exam Physical Exam: General: Tired but well-appearing 80-year-old gentleman no acute distress. Cardiac: Normal rate and irregular rhythm; S1 and S2 present with no murmurs, rubs, or gallops. Pulmonary: Good respiratory effort with symmetric expansion of the chest. No use of accessory muscles. Lungs were clear to auscultation bilaterally with no crackles or wheezes. Abdominal: Normoactive bowel sounds. Abdomen was soft, nondistended, and non- tender to palpation. Results & Data Results & Data ([facility]) Vital Signs (Past 12 Hours) Vital Signs Temp Pulse Resp BP Pulse Ox 04/10/21 22:26 36.8 C 69 16 116/70 98 Resident Activity Tracking Resident Involvement: Resident Care Provided Care Provided: Adult Hospital Medicine
[2021-04-11] MEDS: MULTIVITAMIN TAB PO SCH ×2 (07:57→20:24)
[2021-04-11] MEDS: METOPROLOL SUCC 25MG EXT REL TAB PO SCH (07:58)
[2021-04-11] MEDS: PANTOprazole 40 MG TAB PO SCH (07:58)
[2021-04-11] MEDS: ASPIRIN 81 MG ECTAB PO SCH (07:58)
[2021-04-11] MEDS: ENOXAPARIN INJ 30 MG/0.3 ML SYR SQ SCH (22:05)
[2021-04-12 06:40] LABS: Basophils # (auto) 0.03 K/uL (0-0.2); Basophils % (auto) 0.4 %; Eosinophils # (auto) 0.19 K/uL (0-0.5); Eosinophils % (auto) 2.7 %; Hematocrit (blood only) 28.3 % (42-52); Hemoglobin 9.4 g/dL (14.0-18.0); Immature Granulocytes # (auto) 0.03 K/uL (0.00-0.02); Immature Granulocytes % (auto) 0.4 %; Lymphocytes # (auto) 0.98 K/uL (1.2-3.4); Mean Corpuscular Hemoglobin 29.9 pg (25-34); Mean Corpuscular Hgb Conc 33.2 g/dL (32-36); Mean Corpuscular Volume 90.1 fL (80-100); Mean Platelet Volume 8.7 fL (7.4-10.4); Monocytes # (auto) 0.72 K/uL (0.11-0.59); Monocytes % (auto) 10.3 %; Neutrophils # (auto) 5.07 K/uL (1.4-6.5); Neutrophils % (auto) 72.2 %; Platelet Count 208 K/uL (130-400); RDW Coefficient of Variation 15.7 % (11.5-14.5); RDW Standard Deviation 51.4 fL (36.4-46.3); Red Blood Count 3.14 M/uL (4.7-6.1); White Blood Count 7.02 K/uL (4.8-10.8)
[2021-04-12 06:57] LABS: Albumin Level 2.7 gm/dl (3.4-5.0); BUN Creatinine Ratio 22.3 (10-20); Bilirubin,Total 0.4 mg/dl (0.2-1.0); Calcium 8.4 mg/dl (8.5-10.1); Creatinine Clr Calc Pharmacy 70.2 ml/min; Est GFR (African American) 87.2 ml/min; Est GFR (Non-African American) 75.2 ml/min; Globulin 2.7 gm/dl (2.5-4.0); Potassium 3.7 mmol/L (3.5-5.1); Total Protein 5.4 gm/dl (6.0-8.3)
--- NOTE | 2021-04-12 07:05 | Hospitalist Progress Note ---
Date of Service April 12, 2021 Assessment & Plan (1) Diarrhea: Plan: Bassem Bradley is an 80yo male with PMHx significant for HFpEF, permanent atrial fibrillation not on AC, HTN, HLD, vitamin D deficiency, and hearing loss who presented to [facility] ED with diarrhea, subsequently found to have a mild LAKSHMI and generalized weakness/deconditioning requiring evaluations by PT, OT. Generalized Weakness / Deconditioning --improving - Appreciated early and throughout admission. Suspect secondary to enterocolitis (now resolved) that led to dehydration. - However, patient has reportedly fallen several times in last few months too - raising concerns for chronic ambulatory dysfunction - PT/OT Consulted: Recommend inpatient rehabilitation -- will be going to [facility] per CM - Special considerations regarding his living situation: -Has to go up steps to his bedroom; kitchen is downstairs -Lives with a sister but he says she would not be able to help him out in any significant way -Continue to monitor improvements with physical therapy; suspect he will still need rehab at this time Normocytic Anemia - On admission, Hgb 12.4 --> has subsequently downtrended towards 9.4; MCV 90; RBC# normal. TBili not elevated. - No obvious source of bleeding and not on AC. No IVF. Kidney function stable. Poor PO intake noted. - Check Hemoccult for blood in stool -- denying any recent history of such - Retest H&H + check reticulocyte count at 1400 -- if persistently low, add on ferritin/transferrin/iron level Diarrhea--resolved - Several weeks' worth of diarrhea present on admission, that subsequently resolved while here - Suspect likely secondary to viral enterocolitis - Stool PCR returned mckee-negative for pathogenic bacteria, including C. diff - Encourage hydration; can consider loperamide p.r.n. if recurrs given negative infectious w/u Prerenal LAKSHMI--resolved - Noted on admission BUN 38 / Cr 1.48 in setting of recent diarrhea -- resolved s/p IVF, PO intake - Baseline Cr 0.8 - 1.0 on review of records Permanent Atrial Fibrillation - Rate controlled while here - Follows with Dr. Edgar; notes reviewed, which reveal that patient refuses anti-coagulation despite high [id number] score. HFpEF--previous EF unknown -Euvolemic on exam. Asymptomatic. - TTE showing normal LV function with EF of 60 to 65%, severe aortic stenosis, mild to moderate tricuspid regurgitation - Continue Toprol XL 12.5mg, ASA GERD - Protonix per hospital formulary FEN/GI: heart-healthy diet, encourage PO fluid intake DVT Prophylaxis: Lovenox 30mg SQ Q24H (reduced dose due to advanced age and LAKSHMI) Disposition: med/surg, PT/OT recommending inpatient rehab Code Status: FULL CODE (2) Dehydration: (3) Ambulatory dysfunction: (4) Atrial fibrillation: (5) Diastolic CHF: (6) Hyponatremia: (7) Hyperkalemia: (8) Acute kidney injury: (9) Elevated troponin: (10) Hypertension: Admission and Anticipated Discharge Date Admission Date: April 05, 2021 Subjective Feeling well this AM. NAEO. Ambulated to chair with assistance of RN well. Denied any lightheadedness or dizziness. Passing gas well. Last BM approx. 2 days ago - endorses like he has to go soon, but no feelings of diarrhea. No recent blood in stool. No nausea. Endorses strong appetite. No shortness of breath. Voiding w/o difficulty. Review of Systems Review of Systems: as per HPI Physical Exam Physical Exam: General: Tired but well-appearing 80-year-old gentleman no acute distress. Cardiac: Normal rate and irregular rhythm; S1 and S2 present with no murmurs, rubs, or gallops. Pulmonary: Good respiratory effort with symmetric expansion of the chest. No use of accessory muscles. Lungs were clear to auscultation bilaterally with no crackles or wheezes. Abdominal: Normoactive bowel sounds. Abdomen was soft, nondistended, and non-t bridger to palpation. Results & Data Results & Data ([facility]) Vital Signs (Past 12 Hours) Vital Signs Temp Pulse Resp BP Pulse Ox 04/11/21 22:12 36.9 C 69 22 113/64 99 Resident Activity Tracking Resident Involvement: Resident Care Provided Care Provided: Adult Hospital Medicine
--- NOTE | 2021-04-12 08:38 | Discharge Summary ---
Date of Service April 12, 2021 Admission HPI Per Admitting Provider Bassem Bradley is an 80yo male with PMHx significant for HFpEF (unknown EF), a- fib (on BB but no AC), HTN, HLD, vitamin D deficiency, and hearing loss who presented to [facility] ED on 04/05 for low blood pressure and generalized weakness in context of diarrhea x10 days. Patient reports diarrhea, without blood or mucus, 2-4x per day for last 10 days. Patient has also had decreased PO intake per . He usually is very active and is proficient in all ADLs/iADLs but fell at home (without LOC or trauma) due to weakness. He was tested by PCP (Dr. Sheppard) for c. diff and negative for the gene on 04/02. Due to persistant symptoms and low blood pressure, Dr. Christianson asked him to present to ED. No associated fever/chills. No recent respiratory symptoms or urinary symptoms. No rash. No recent travel or consumption of well water. In the ED the patient was initially hypotensive to 78/50 and tachycardic to 112. He received 1L LR bolus - HR down to 50s-70s and BP up to 120/60. EKG showed a- fib without RVR, and with sign of previous inferior infarct. Laboratory evaluation was significant for WBC 10.83 with neutrophilic predominance and left shift, Hgb 12.4, Na 128, K 6.3, Cr 1.65, BUN 39, Troponin 0.12. After LR bolus, Na improved to 130, K down to 5.8, Cr down to 1.48. Patient had CT A/P which showed mild wall thickening of several distal ileal loops with associated mesenteric stranding, suspicious for nonspecific enteritis Admission Exam Per Admitting Provider General: A&Ox3. NAD. Cooperative. HEENT: Atraumatic, normocephalic. Pulm: CTAB A&P. -wheezes, -rales, -rhonchi. Symmetrical chest rise. No increase work of breathing. No respiratory distress. No LE edema. Cardiac: irregularly irregular rhythm, -mrg. Radial pulses intact and sym metrical. Abdominal: soft, non-tender, non-distended, BS x 4 Skin: warm, dry, no rash Principal Diagnosis generalized weakness/deconditioning normocytic anemia diarrhea lakshmi Discharge Exam General: Tired but well-appearing 80-year-old gentleman no acute distress. Cardiac: Normal rate and irregular rhythm; S1 and S2 present with no murmurs, rubs, or gallops. Pulmonary: Good respiratory effort with symmetric expansion of the chest. No use of accessory muscles. Lungs were clear to auscultation bilaterally with no crackles or wheezes. Abdominal: Normoactive bowel sounds. Abdomen was soft, nondistended, and non- tender to palpation. Discharge Data Allergies Allergy/AdvReac Type Severity Reaction Status Date / Time No Known Allergies Allergy Unknown Verified 04/05/21 17:36 Consultations 04/05/21 20:23 ED Decision to Admit Stat Ordered Studies 04/05/21 19:08 CT abd pelvis wo con Stat IMPRESSION: 1. Suspected mild wall thickening of several distal ileal loop with mild associated mesenteric stranding. This represents a nonspecific enteritis. 2. Left-sided spigelian hernia which contains multiple small bowel loops and a small portion of the descending colon. No resultant bowel obstruction. 3. Suboptimal evaluation of the abdomen given motion artifact and lack of IV contrast. 4. Small hiatal hernia. 5. 2 mm left renal calculus. No hydronephrosis. No ureteral calculi. Hospital Course (1) Diarrhea: Bassem Bradley is an 80yo male with PMHx significant for HFpEF, permanent atrial fibrillation not on AC, HTN, HLD, vitamin D deficiency, and hearing loss who presented to [facility] ED with diarrhea, subsequently found to have a mild LAKSHMI and generalized weakness/deconditioning requiring evaluations by PT, OT. Generalized Weakness / Deconditioning --improving - Appreciated early and throughout admission. Suspect secondary to enterocolitis (now resolved) that led to dehydration. - Patient has reportedly fallen several times in last few months too - raised concerns for chronic ambulatory dysfunction - PT/OT Consulted: Recommend inpatient rehabilitation -- discharged to [facility] - Special considerations regarding his living situation that should be considered before discharging home from inpatient rehab: -Has to go up steps to his bedroom; kitchen is downstairs -Lives with a sister but he says she would not be able to help him out in any significant way -Continue to monitor improvements with physical therapy; suspect he will still need rehab at this time Normocytic Anemia -- baseline hemoglobin unknown - On admission, Hgb 12.4 in context of dehydration (suspect heme-concentration) --> subsequently found to be between 9.4 - 10.4 later in admission (MCV 90; RBC# normal. TBili not elevated) - Asymptomatic. VSS. No obvious source of bleeding and not on AC. No IVF. Kidney function stable. Poor PO intake noted. - May represent age-related / chronic disease-related changes, but would recommend heme-occult as outpatient and possibly iron panel - Prior to discharge, H&H returned at (04/12): 9.4 with an RPI of 0.68, indicating hyperproliferation - Recommend rechecking CBCd within 2-3 days of discharge to ensure stability Diarrhea--resolved - Several weeks' worth of nonbloody diarrhea present on admission, that subsequently resolved while here - Suspect likely secondary to viral enterocolitis - Stool PCR returned mckee-negative for pathogenic bacteria, including C. diff - Continue to encourage hydration; can consider loperamide p.r.n. if recurs given negative infectious w/u - If returns as an outpatient, may wish to consider GI referral and colonoscopy Prerenal LAKSHMI--resolved - Noted on admission BUN 38 / Cr 1.48 in setting of recent diarrhea -- resolved s/p IVF, PO intake - Baseline Cr 0.8 - 1.0 on review of records Permanent Atrial Fibrillation - Rate controlled while here - Follows with Dr. Edgar; notes reviewed, which reveal that patient refuses anti-coagulation despite high [id number] score - Continue home Toprol XL 125mg HFpEF--previous EF unknown -Euvolemic on exam. Asymptomatic. - TTE showing normal LV function with EF of 60 to 65%, severe aortic stenosis, mild to moderate tricuspid regurgitation - Continue Toprol XL 12.5mg, ASA - Home Lasix, metolazone, and spironolactone held during stay given dehydrated and initially hypotensive state - patient remained euvolemic and normotensive throughout hospitalization. Please restart gently, as indicated, or for any signs of hypervolemia/weight gain GERD - Protonix per hospital formulary Code: Patient identifies as FULL CODE (2) Dehydration: (3) Ambulatory dysfunction: (4) Atrial fibrillation: (5) Diastolic CHF: (6) Hyponatremia: (7) Hyperkalemia: (8) Acute kidney injury: (9) Elevated troponin: (10) Hypertension: Total Time Total Time Spent Total Time Spent (In Minutes): 30 Discharge Plan Discharge Items Patient Disposition: Transfer Inpatient Rehab Fac Reason For Visit: LOW BLOOD PRESSURE Discharge Diagnosis: generalized weakness/deconditioning noninfectious diarrhea anemia Activity: Per Instructions section Non-emergency contact: Primary Care Provider Call non-emergency contact if: you have any medication questions, your symptoms worsen and your temperature is above 101 Follow-up/Referrals: Mohan Sanches DO [Primary Care Provider] - Diet: Heart Healthy Addtl Attending Provider Instructions: Bassem Bradley is an 80yo male with PMHx significant for HFpEF, permanent atrial fibrillation not on AC, HTN, HLD, vitamin D deficiency, and hearing loss who presented to [facility] ED with diarrhea, subsequently found to have a mild LAKSHMI and generalized weakness/deconditioning requiring evaluations by PT, OT. Generalized Weakness / Deconditioning --improving - Appreciated early and throughout admission. Suspect secondary to enterocolitis (now resolved) that led to dehydration. - Patient has reportedly fallen several times in last few months too - raised concerns for chronic ambulatory dysfunction - PT/OT Consulted: Recommend inpatient rehabilitation -- discharged to [facility] - Special considerations regarding his living situation that should be considered before discharging home from inpatient rehab: -Has to go up steps to his bedroom; kitchen is downstairs -Lives with a sister but he says she would not be able to help him out in any significant way -Continue to monitor improvements with physical therapy; suspect he will still need rehab at this time Normocytic Anemia -- baseline hemoglobin unknown - On admission, Hgb 12.4 in context of dehydration (suspect heme-concentration) --> subsequently found to be between 9.4 - 10.4 later in admission (MCV 90; RBC# normal. TBili not elevated) - Asymptomatic. VSS. No obvious source of bleeding and not on AC. No IVF. Kidney function stable. Poor PO intake noted. - May represent age-related / chronic disease-related changes, but would recommend heme-occult as outpatient and possibly iron panel - Prior to discharge, H&H returned at (04/12): 9.4 with an RPI of 0.68, indicating hyperproliferation - Recommend rechecking CBCd within 2-3 days of discharge to ensure stability Diarrhea--resolved - Several weeks' worth of nonbloody diarrhea present on admission, that subsequently resolved while here - Suspect likely secondary to viral enterocolitis - Stool PCR returned mckee-negative for pathogenic bacteria, including C. diff - Continue to encourage hydration; can consider loperamide p.r.n. if recurs given negative infectious w/u - If returns as an outpatient, may wish to consider GI referral and colonoscopy Prerenal LAKSHMI--resolved - Noted on admission BUN 38 / Cr 1.48 in setting of recent diarrhea -- resolved s/p IVF, PO intake - Baseline Cr 0.8 - 1.0 on review of records Permanent Atrial Fibrillation - Rate controlled while here - Follows with Dr. Edgar; notes reviewed, which reveal that patient refuses anti-coagulation despite high [id number] score - Continue home Toprol XL 125mg HFpEF--previous EF unknown -Euvolemic on exam. Asymptomatic. - TTE showing normal LV function with EF of 60 to 65%, severe aortic stenosis, mild to moderate tricuspid regurgitation - Continue Toprol XL 12.5mg, ASA - Home Lasix, metolazone, and spironolactone held during stay given dehydrated and initially hypotensive state - patient remained euvolemic and normotensive throughout hospitalization. Please restart gently, as indicated, or for any signs of hypervolemia/weight gain GERD - Protonix per hospital formulary Code: Patient identifies as FULL CODE Pending Studies at Discharge: No Stand-Alone Forms: My [facility] Skilled Items Patient informed of condition?: Yes DNR: No Discharge Level of Care: Acute rehab Communicable Disease: No Discharge Prognosis: Stable Lines: None Urinary Catheter: No Medications and DC Order Prescriptions: Continued potassium chloride 20 mEq tablet,ER particles/crystals 60 meq PO .COMPLEX Qty: 450 RF: 3 omeprazole 20 mg capsule,delayed release(DR/EC) 20 mg PO QAM Qty: 90 RF: 3 metoprolol succinate 25 mg tablet extended release 24 hr 12.5 mg PO DAILY Qty: 45 RF: 1 aspirin 81 mg tablet,delayed release (DR/EC) 81 mg PO DAILY RF: 0 flunisolide 25 mcg (0.025 %) spray,non-aerosol 1 sprays intranasal ONCE PRN (Reason: allergy symptoms) RF: 0 meloxicam 7.5 mg tablet 7.5 mg PO DAILY 14 Days Qty: 14 RF: 0 multivitamin Tablet 1 tab PO BID RF: 0 Discontinued metolazone 5 mg tablet 5 mg PO QAM Qty: 30 RF: 11 spironolactone 25 mg tablet 25 mg PO DAILY Qty: 90 RF: 3 furosemide 40 mg tablet 40 mg PO BID Qty: 180 RF: 3 lisinopril 5 mg tablet 5 mg PO QAM Qty: 90 RF: 3 Discharge Orders: Discharge Order (Routine); Ordered 04/12/21 Ordered By: Jameel Bianchi Admission Data Admit Date/Time: 04/05/21 21:42 Attending Provider: Pallavi Lakhani Admit Provider: Catrachito Ely Primary Care Provider: Mohan Sanches Other Providers: Misael Patel ; [facility] ; [place] ; Drew Goyal [facility] ; Jameel Tafoya Other Interventions: Discharge Summary Assessment (RN) Last Done: 04/12/21 12:14 Supervising Physician Co-Signing Physician Notes Resident Physician Supervision Note: I independently interviewed and examined the patient and verified the ho history and physical, reviewed labs and image studies and agree with resident Dr. Bianchi findings and care plan. Resident Activity Tracking Resident Involvement: Resident Care Provided Care Provided: Adult Hospital Medicine
[2021-04-12] MEDS: PANTOprazole 40 MG TAB PO SCH (09:22)
[2021-04-12] MEDS: ASPIRIN 81 MG ECTAB PO SCH (09:22)
[2021-04-12] MEDS: METOPROLOL SUCC 25MG EXT REL TAB PO SCH (09:22)
[2021-04-12] MEDS: MULTIVITAMIN TAB PO SCH (09:22)
[2021-04-12 12:00] LABS: Hematocrit (blood only) 28.3 % (42-52); Hemoglobin 9.4 g/dL (14.0-18.0); Reticulocyte % 1.5 % (0.5-2.0); Reticulocytes # 0.05 10^6/uL (0.02-0.10)
--- NOTE | 2021-04-17 09:15 | Coding Query ---
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 Please assist us with the question(s) below: Coding Question(s): The diagnosis(es) below was documented on the H&P and on some progress notes then subsequently fell off all further documentation. Please indicate if it is still a possible diagnosis or ruled out. Physician's Response(s): Suspect Type II NSTEMI ( x ) Diagnosed/Possible ( ) Ruled out ( ) Other (please specify) Thank you for your assistance, Katherine Toribio - [employer] [facility]
== END 2021-04-12 13:00 | DRG 391 ==
LOC: ED 16:28 → SUATTDRO 21:42 → 2N 21:42 → 3W 04-08 21:58

== ENCOUNTER 2021-05-31 17:47 | Inpatient (IN) ==
[2021-05-31 18:21] LABS: Basophils # (auto) 0.02 K/uL (0-0.2); Basophils % (auto) 0.2 %; Eosinophils # (auto) 0.12 K/uL (0-0.5); Eosinophils % (auto) 1.1 %; Hematocrit (blood only) 30.1 % (42-52); Hemoglobin 10.3 g/dL (14.0-18.0); Immature Granulocytes # (auto) 0.02 K/uL (0.00-0.02); Immature Granulocytes % (auto) 0.2 %; Lymphocytes # (auto) 0.91 K/uL (1.2-3.4); Lymphocytes % (auto) 8.5 %; Mean Corpuscular Hemoglobin 30.3 pg (25-34); Mean Corpuscular Hgb Conc 34.2 g/dL (32-36); Mean Corpuscular Volume 88.5 fL (80-100); Monocytes # (auto) 0.68 K/uL (0.11-0.59); Monocytes % (auto) 6.4 %; Neutrophils # (auto) 8.94 K/uL (1.4-6.5); Neutrophils % (auto) 83.6 %; Platelet Count 148 K/uL (130-400); RDW Coefficient of Variation 17.2 % (11.5-14.5); RDW Standard Deviation 55.9 fL (36.4-46.3); White Blood Count 10.69 K/uL (4.8-10.8)
[2021-05-31] MEDS ORDERED: SODIUM CHLORIDE 0.9% 1000ML 500 ML IV ONE ×2 (18:29→23:06)
[2021-05-31 18:41] LABS: Albumin Level 3.6 gm/dl (3.4-5.0); BUN Creatinine Ratio 38.7 (10-20); Bilirubin,Total 0.5 mg/dl (0.2-1.0); Calcium 9.1 mg/dl (8.5-10.1); Creatinine Clr Calc Pharmacy 36.1 ml/min; Est GFR (African American) 43.2 ml/min; Est GFR (Non-African American) 37.3 ml/min; Globulin 3.7 gm/dl (2.5-4.0); Potassium 5.2 mmol/L (3.5-5.1); Total Protein 7.3 gm/dl (6.0-8.3)
[2021-05-31 18:48] LABS: Appearance Urine Clear (Clear); Bacteria Urine Automated Negative (Negative); Bilirubin Urine Negative (Negative); Blood Urine Negative (Negative); Color Urine Yellow; Glucose Urine UA Negative (Negative); Ketones Urine Negative (Negative); Leukocyte Esterase Urine Trace (Negative); Nitrite Urine Negative (Negative); Protein Urine Negative (Negative); RBC Urine Automated 0-4 /hpf (0-4); Specific Gravity Urine 1.011 (1.000-1.030); Urobilinogen Urine Negative (Negative)
--- NOTE | 2021-05-31 19:00 | XRay Report ---
XR chest 1V portable CLINICAL HISTORY: weakness TECHNIQUE: Single frontal radiograph of the chest was obtained. Comparison: Comparison is made to chest radiographs 06/20/2005 FINDINGS: No lines and tubes are seen. Calcified aortic knob is seen. Cardiomegaly is noted. The lungs are nina r. No evidence of pleural effusion or pneumothorax. IMPRESSION: No acute chest disease. ACT 112: Negative or not required by law. Electronically signed by: Aaron Escalante M.D. 05/31/2021 6:59 PM
[2021-05-31 19:02] LABS: Magnesium 2.1 mg/dl (1.7-2.4)
[2021-05-31 19:35] LABS: Troponin I High Sensitivity 131.8 pg/ml (0-20)
[2021-05-31] MEDS: SODIUM CHLORIDE 0.9% 1000ML 1,000 ML IV SCH ×2 (19:37→22:38)
--- NOTE | 2021-05-31 19:58 | History & Physical Report ---
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 At present, his overall presentation is most suspicious for dehydration. Borderline Hypotension Presented to [facility] from with blood pressure 96/60, normal HR/RR/SpO2 w/ clinically dry appearance Hypotension resolved following admission of 1500 cc NSS in the ED Work-up as follows: - No leukocytosis. Afebrile. Other than chronic loose stools, no clear source of infection. CXR normal. - Persistent anemia noted at 10.3comparable to previous measurements in April - Metabolic panel revealing sodium 128/potassium 5.2/BUN 65/creatinine 1.68 (baseline 0.8-1.1) - Procal 1.6, CRP 12, lactate normal - hsTRP - 132, recheck at 126 At present, strongly suspect that patient's borderline hypotension and overall appearance is consistent with subacute dehydration. This is supported by poor p.o. intake on history, as well as continued use of diuretics, into the fact that patient responded well fast to fluid resuscitation. Loose stools may be contributing, though he reports this is chronic and has not been exacerbated lately. There is no clear evidence of infection (see note below). There is no evidence of acute heart failure. There is no evidence of obstructive process at present. Continue hydration overnight Hold Lasix, lisinopril, metolazone, metoprolol until continued demonstration of normotension, resolution of LAKSHMI Check BMP in a.m. --- Unsure, at present, what to make of elevated procal and CRP - in setting of acute renal insufficiency, these can be bumped a little bit. No obvious source of infection. No illness-like symptoms other than his chronic loose stools - which he says really haven't been flaring too much lately. He has no belly pain. Will recheck in AM. If persistently elevated and clinical concerns ongoing for unidentified infection, low threshold to start broad spectrum ABX and consider CT-A/P (2) Acute kidney injury: Plan: Metabolic panel revealing sodium 128/potassium 5.2/BUN 65/creatinine 1.68 (baseline 0.8-1.1) Strongly suspect prerenal in origin in context of clinically dry appearance, ongoing medication usage (which includes diuresis), fluid responsiveness with regards to blood pressure Status post receipt of 1500 cc normal saline in the ED Continue normal saline x 500cc, can add more if needed Monitor urine output If fails to improve despite ongoing fluid resuscitation, can consider ultrasound of the kidneys, FENa calculation (3) Hyponatremia: Plan: Appreciated on arrival, NA 128 in the setting of BUN 65/creatinine 1.68 Suspect hypovolemic hyponatremia. Gentle fluid replacement, as above, for suspected dehydration If sodium fails to improve with renal insufficiency and rehydration, would consider obtaining FENa, urine osmole's for further clarification (4) Hyperkalemia: Plan: On admission, noted to have very mildly elevated potassium 5.2 in the setting of LAKSHMI, volume contraction IV fluids, as above. Hold home lisinopril. No longer on spironolactone. - Recheck in AM (5) Loose stools: Plan: Patient with long reported history of loose stools, history extending back to the timeframe of March2denies hematochezia or melena, though has been noted to have positive Hemoccults in the past and was told to follow-up as an outpatient Primarily suspect that this is a chronic issue. However because he came in hypotensive and has some difficulty providing detailed history and lives in a detention, opt to recheck stool PCR panel and C. diff (cancel C. diff if uncollected in 24 hours). Also recheck occult blood. Pending results of his PCR panel, may wish to consider adding daily loperamide to regimen given possible contribution to labile blood pressures and frequent readmissions No abdominal findings on exam today or reports in history to order CT of the abdomen and pelvis at this time; however, if clinical appearance changes or is worsening, low threshold to obtain Patient will need to follow-up with PCP as outpatient to potentially discuss colonoscopy to further clarify occult blood in the stool While oral iron supplementation is normally thought to cause constipation, 5 to 8% of people can experience loose stools/diarrhea with chronic therapy; may wish to modify his chronic therapy in the a.m. pending stool count. --> Hold supplementation for now (6) Anemia: Plan: Patient with long documented history of normocytic anemia, with hemoglobin around 10, in the setting of positive heme-occult stools in the past (though currently denying hematochezia/melena) --> recheck occult blood as above At this time, lower suspicion that this is contributing to the acute reason for admission Recheck iron studies in the a.m.while here, if persistently low, can consider IV iron infusion (7) Elevated troponin: Plan: On arrival, troponin noted to be 132; patient was denying any chest discomfort, shortness of breath at present or within the past few weeks Recheck 126 -- downtrending No EKG changesconduction or repolarization abnormalities Primarily suspect secondary to acute renal insufficiency and supply/demand mismatch in the setting of dehydration (8) Ambulatory dysfunction: Plan: Noted history of ambulatory dysfunction, which it was one of the reasons for his admission in April 2021 Patient reported fall at home day prior to discharge in setting of weakness, suspected dehydration; during last admission, he also reported several falls within the last several months Consult PT, OT: Appreciate recommendations and dispositional insights (9) Hearing loss: Plan: History noted. Continue using hearing aids while here. (10) Atrial fibrillation: Plan: - Rate controlled while here - Follows with Dr. Edgar; notes reviewed, which reveal that patient refuses anti-coagulation despite high [id number] score - Hold metoprolol during resolving hypotension (11) Diastolic CHF: Plan: -Clinically dry appearing on exam. Asymptomatic. - Last TTE 04/2021 showing normal LV function with EF of 60 to 65%, severe aortic stenosis, mild to moderate tricuspid regurgitation - Hold metoprolol, Lasix, metolazone at this time (12) Hypertension: Plan: Presented with hypotension, suspected to be secondary to dehydration Hold home agents with potential to affect BPs while HoTN demonstrates persistent resolutionmetoprolol, Lasix, metolazone, lisinopril (13) Severe aortic stenosis: Plan: - History noted in setting of ongoing fluid resuscitation Plan: Code: FULL CODE - discussed extensively at admission with patient and sister; he states for now, he would like to be full code, but also wants to discuss more with Sister because he's never fully thought of it before -- agrees if he has any concerns, clarifications, questions, or changes, that he is to speak with daytime team. Dispo: MedSurg PPX: Lovenox, reduced dose given LAKSHMI, age Diet: Regular History of Present Illness Primary Care Provider: Mohan Sanches, DO This is an 80-year-old gentleman with a notable past medical history of ambulatory dysfunction, iron deficiency anemia ?secondary to chronic GI losses, h/o DVT and PE s/p IVC filter placement (2004), severe , scoliosis, hearing loss, LVH, hypertension, HFpEF, Raza's esophagus, atrial fibrillation not on anticoagulation who presented to [facility] for evaluation of weakness. Of note, patient was recently discharged from [facility] on 04/2921 for ongoing loose stools, weakness, and falls - was hypotensive on arrival with RVR - C diff negative, found to have enteritis, presentation suspected to be secondary to dehydration. Patient said that he was in his normal health up until Sunday, where he experienced chills. He had no other symptoms associated thisno cough no shortness of breath, no belly pain. He has had chronic diarrhea over the last 3 months, which he describes as "loose stool 1-3 times per day." It is not changed recently at all. He has not had nausea or vomiting. Then, throughout yesterday, he began feeling more weak. He did get out of bed this morning, and reports tripping and falling. His right knee, which does have a replacement, did hurt initially, but he was able to get up. He denies hitting his head or losing consciousness. Later in the day, he was participating in PT, where they took his blood pressure and noted it to be "soft." He was asymptomatic and denied any lightheadedness or dizziness. Because of his weakness, they wanted him to come out to the hospital to be evaluated. He has been taking his Lasix as prescribed. His sister, who contributes to history, actually endorses that his legs have continued to look better with less swelling over the last couple of weeks He denies any sick contacts. Denies any medication changeshas continued to take his Lasix and spironolactone on a regular basis (though sister notes to me that the spironolactone was supposed to be discontinued a few months ago). Denies regular use of tobacco, alcohol, or recreational drugs. Medications reviewed and include ferrous sulfate 325 mg daily, Lasix 80 mg daily, Toprol succinate 25 mg daily, omeprazole 20 mg daily, potassium chloride 20 mEq daily, aspirin 81 mg daily, multivitamin, acetaminophen 325 mg as needed. In the ER, patient was found to be with softer blood pressure 96/60 with normal heart rate, oxygen saturation and respiratory rate. Labs demonstrated white count 10.7, persistent anemia at 10.3 that is normocytic, sodium 128, potassium 5.2, BUN 65, creatinine 1.68 (baseline appears between 0.81.1), high- sensitivity troponin 132, urinalysis demonstrating trace leuk esterase, COVID test negative. Chest x-ray was unrevealing for any acute processes. He was given a total of 1500 cc NSS in the ED. Allergies Allergy/AdvReac Type Severity Reaction Status Date / Time No Known Allergies Allergy Unknown Verified 05/31/21 20:32 Home Medications Medication Instructions Recorded Confirmed Type aspirin 81 mg tablet,delayed 81 mg PO DAILY 02/18/19 05/31/21 History release omeprazole 20 mg capsule,delayed 20 mg PO QAM #90 cap 02/23/20 05/31/21 Rx release acetaminophen 325 mg tablet 650 mg PO Q4H PRN tab 05/02/21 05/31/21 History ferrous sulfate 325 mg (65 mg 325 mg PO Q OTHER DAY tab 05/02/21 05/31/21 History iron) tablet multivitamin 1 tab PO DAILY tab 05/02/21 05/31/21 History metoprolol succinate 25 mg 12.5 mg PO QAM #45 tab 05/16/21 05/31/21 Rx tablet,extended release 24 hr metolazone 5 mg tablet 5 mg PO QAM #30 tab 05/27/21 05/31/21 Rx furosemide 40 mg tablet 40 mg PO AMPM 05/31/21 05/31/21 History lisinopril 5 mg tablet 5 mg PO DAILY 05/31/21 05/31/21 History multivitamin with minerals 1 tab PO BID 05/31/21 05/31/21 History (Hair,Skin and Nails) potassium chloride 20 mEq 20 meq PO UD 05/31/21 05/31/21 History tablet,extended release Past Med/Surg History Medical History Acute hyperkalemia LAKSHMI (acute kidney injury) Dehydration Hearing deficit History of colon polyps Melanoma of face Osteoarthritis Pulmonary embolism 2004--after ortho sx--on pradaxa Surgical History History of colonoscopy History of colostomy 02/1989 History of colostomy reversal History of esophagogastroduodenoscopy (EGD) History of inferior vena caval filter placement 2005 @ [facility] History of Mohs micrographic surgery for skin cancer x2 History of partial colectomy benign tumor growth 02/1989--about 1 foot removed History of sinus surgery History of tonsillectomy and adenoidectomy History of tooth extraction all teeth removed History of total bilateral knee replacement History of total replacement of both hip joints Family History Mother Diabetes Father Sick sinus syndrome due to SA node dysfunction Sister Colorectal cancer Other No family history of adverse response to anesthesia Denies family history of Ovarian cancer Prostate cancer Breast cancer Social History Smoking Status: Former smoker Age Quit Using Tobacco: 38; Second Hand Exposure: No; Hx Alcohol Use: No Hx Substance Use: No Preferred Language: Latvian Communication Ability: Effective Hearing Ability: Use of Hearing Aid Capacity Management Specialist Required: No Beliefs That Will Affect Care: None marital status: Unknown Current Living Situation: Family Current Living Situation Comment: lives with sister current occupational status: retired How many Children do You have: 1 Other Information That Helps Us Care for You: No Feels Safe at Home: Yes Childhood Exposure to Second-Hand Smoke: Yes caffeine: Yes Dental Care, Regularly: No Physical Activity Frequency: Daily Physical Activity Frequency Comment: Walking Seatbelt Use: always Sunscreen Use: No Assistive Devices: Walker Review of Systems Review of Systems: as per HPI Physical Exam Physical Exam: General: 80-year-old male lying back in his hospital bed, relaxed, upon my arrival. He is in no acute distress and does not appear toxic. Fully alert and oriented. HEENT: NCAT. - Eyes - Sclera are white, anicteric, and without injection. PERRL. - Mouth - MMM with no tonsillar edema or exudates. Dentures in place. - Neck - supple, no JVD. Cardiac: Normal rate and irregualr rhythm; S1 and S2 present with grade 2/6 RAYNA best heard at RUSB, radiating down to the apex. Pulmonary: Good respiratory effort with symmetric expansion of the chest. No use of accessory muscles. Lungs were clear to auscultation bilaterally with no crackles or wheezes. Abdominal: Normoactive bowel sounds. Abdomen was soft, nondistended, and non- tender to palpation. Extremities: Upper and lower extremities are warm and well perfused. 1+ pitting edema in the LEs bilaterally. Psych: Well-developed, well-nourished, appropriately dressed for occasion. Behavior is cooperative and appropriate. Affect is WNL. Insight is appropriate. Results & Data Results & Data ([facility] [place]) Vital Signs (Past 12 Hours) Vital Signs Temp Pulse Pulse Resp BP BP Pulse Ox 05/31/21 19:47 72 22 133/61 96 05/31/21 18:36 67 18 96 05/31/21 18:04 36.6 C 65 18 96/60 L 99 Supervising Physician Co-Signing Physician Notes Attending addendum: I have physically seen this patient, have supervised the medical residents a ctivities, and agree with the H&P unless as otherwise noted. Assessment and Plan: Elevated troponin/severe aortic stenosis/chronic diastolic CHF/atrial fibrillation- The patient will be admitted to telemetry for serial cardiac enzymes, serial EKG's, cardiac rhythm monitoring and a 2-D echocardiogram with Dopplers. Troponin 131.8 upon admission, with follow-up decreasing to 126 Relative hypotension/hyponatremia/hyperkalemia- responded to 1500 cc NSS bolus in the ED Creatinine 1.68 upon admission, with base 1.14 Hold furosemide, metolazone and metoprolol for now Follow serial BMP and magnesium levels Remaining orders and notations as noted Resident Activity Tracking Resident Involvement: Resident Care Provided Care Provided: Adult [facility]
[2021-05-31] MEDS ORDERED: ACETAMINOPHEN 325 MG TAB PO PRN ×2 (20:41→21:59)
[2021-05-31] MEDS ORDERED: ENOXAPARIN INJ 30 MG/0.3 ML SYR SQ SCH (20:45)
--- NOTE | 2021-05-31 21:09 | XRay Report ---
XR knee RT 1 or 2V routine, XR knee LT 1 or 2V routine CLINICAL HISTORY: fall, knee pain, weakness/HoTN TECHNIQUE: 2 views of the bilateral knees were obtained. Comparison: None available at the time of this dictation. FINDINGS: There is no evidence of an acute fracture. 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 A small supr apatellar effusion is seen. No soft tissue abnormality is seen. IMPRESSION: Bilateral total knee arthroplasties. Small bilateral effusions without evidence of bony abnormality. ACT 112: Negative or not required by law. Electronically signed by: Aaron Escalante M.D. 05/31/2021 9:08 PM
[2021-05-31 21:20] LABS: C Reactive Protein 12.8 mg/dl (0-0.5)
--- NOTE | 2021-06-01 00:17 | Emergency Department Note ---
History of Present Illness General Chief complaint: Illness Time Seen by Provider: 05/31/21 18:14 History of Present Illness Provider complaint: Diarrhea weakness 80-year-old male presents emergency department for diarrhea and weakness. Patient was sent by the custodial. Patient states he has been having diarrhea but no melena or hematochezia. He reports no abdominal pain chest pain or difficulty breathing. Home Medications Medication Instructions Recorded Confirmed Type aspirin 81 mg tablet,delayed 81 mg PO DAILY 02/18/19 05/31/21 History release omeprazole 20 mg capsule,delayed 20 mg PO QAM #90 cap 02/23/20 05/31/21 Rx release acetaminophen 325 mg tablet 650 mg PO Q4H PRN tab 05/02/21 05/31/21 History ferrous sulfate 325 mg (65 mg 325 mg PO Q OTHER DAY tab 05/02/21 05/31/21 Hi story iron) tablet multivitamin 1 tab PO DAILY tab 05/02/21 05/31/21 History metoprolol succinate 25 mg 12.5 mg PO QAM #45 tab 05/16/21 05/31/21 Rx tablet,extended release 24 hr metolazone 5 mg tablet 5 mg PO QAM #30 tab 05/27/21 05/31/21 Rx furosemide 40 mg tablet 40 mg PO AMPM 05/31/21 05/31/21 History lisinopril 5 mg tablet 5 mg PO DAILY 05/31/21 05/31/21 History multivitamin with minerals 1 tab PO BID 05/31/21 05/31/21 History (Hair,Skin and Nails) potassium chloride 20 mEq 20 meq PO UD 05/31/21 05/31/21 History tablet,extended release Allergies Allergy/AdvReac Type Severity Reaction Status Date / Time No Known Allergies Allergy Unknown Verified 05/31/21 20:32 Past Med/Surg History Medical History Acute hyperkalemia LAKSHMI (acute kidney injury) Dehydration Hearing deficit History of colon polyps Melanoma of face Osteoarthritis Pulmonary embolism 2004--after ortho sx--on pradaxa Surgical History History of colonoscopy History of colostomy 02/1989 History of colostomy reversal History of esophagogastroduodenoscopy (EGD) History of inferior vena caval filter placement 2004 @ [facility] History of Mohs micrographic surgery for skin cancer x2 History of partial colectomy benign tumor growth 02/1989--about 1 foot removed History of sinus surgery History of tonsillectomy and adenoidectomy History of tooth extraction all teeth removed History of total bilateral knee replacement History of total replacement of both hip joints Family History Mother Diabetes Father Sick sinus syndrome due to SA node dysfunction Sister Colorectal cancer Other No family history of adverse response to anesthesia Denies family history of Ovarian cancer Prostate cancer Breast cancer Social History Smoking Status: Unknown if ever smoked Age Quit Using Tobacco: 38; Second Hand Exposure: No; Hx Alcohol Use: Yes Alcohol type: beer Hx Substance Use: No Preferred Language: Portuguese Communication Ability: Effective Hearing Ability: Use of Hearing Aid Internal Controls Specialist Required: No Beliefs That Will Affect Care: None marital status: Unknown Current Living Situation: Family Current Living Situation Comment: lives with sister current occupational status: retired How many Children do You have: 1 Feels Safe at Home: Yes Childhood Exposure to Second-Hand Smoke: Yes caffeine: Yes Dental Care, Regularly: No Physical Activity Frequency: Daily Physical Activity Frequency Comment: Walking Seatbelt Use: always Sunscreen Use: No Assistive Devices: Glasses, Hearing Aid - Bilateral and Walker Review of Systems A total of 10 systems reviewed and were otherwise negative Physical Exam Vital Signs Vital Signs - 24 hr 05/31/21 18:04 05/31/21 18:36 05/31/21 19:47 Temperature 36.6 C Temperature Source Oral Pulse Rate 65 Pulse Rate [Apical] 67 72 Respiratory Rate 18 18 22 Respiratory Depth Normal Blood Pressure 96/60 L Blood Pressure [Left Arm] 133/61 Blood Pressure Mean 72 Blood Pressure Mean [Left Arm] 85 Pulse Oximetry 99 96 96 Oxygen Delivery Method Room Air Room Air Sepsis Recent Fever Within 48 Hours No Sepsis New/Unexplained Change in Mental Status No Sepsis Action Taken by Nursing No Action Required Physical Exam HENT: Exam performed. - Head: Normocephalic and atraumatic. - Right Ear: External ear normal. No mastoid tenderness. - Left Ear: External ear normal. No mastoid tenderness. - Mouth/Throat: The oropharynx is clear and moist. No trismus in the jaw. No dental abscesses or uvula swelling. No oropharyngeal exudate or tonsillar abscesses. EYES: Conjunctivae and EOM are normal. Pupils are equal, round, and reactive to light. Right eye exhibits no discharge. Left eye exhibits no discharge. No scleral icterus. NECK: Normal range of motion. Neck supple. No JVD present. No spinous process tenderness present. No carotid bruit present. No rigidity. No tracheal deviation and normal range of motion present. No Brudzinski's sign and no Kernig's sign no karlene. CV: Normal rate, irregular rhythm, systolic murmur and intact distal pulses. There is no peripheral edema. Palpable radial pulses bue. PULM/CHEST: Effort normal and breath sounds normal. No respiratory distress. No stridor. He has no wheezes. He has no rales. - Chest Wall: He exhibits no tenderness. ABD: The abdomen is soft. Bowel sounds are normal. He has no distension. No mass is present. There is no tenderness. MUSC/SKEL: Normal range of motion. There is no peripheral edema, tenderness or deformity. LYMPH: No cervical adenopathy. NEURO: Motor and sensation grossly intact. Course Course 1813: The patient was evaluated in room A12. A complete history and physical exam was performed Cardiac monitoring: An order was placed for continuous cardiac monitoring. The monitor shows a rate of 70 with atrial fibrilation rhythm 1944:Vital signs stable. Labs show sodium 128. Potassium 5.2. Creatinine elev ated 1.68. Troponin elevated at 131.8. It is thought that the patient's elevated troponin level is due to his acute kidney injury. The patient is not reporting chest pain or difficulty breathing. Patient will be admitted to the [facility] service Dr. Maurice team notified. Administered Medications Sodium Chloride (Nss 1000ml) 1,000 mls @ 125 mls/hr IV .Q8H KARIS Stop: 06/30/21 19:44 Last Admin: 05/31/21 22:38 Dose: 125 mls/hr Documented by: [id number] Infusion: 05/31/21 22:38 Dose: 125 mls/hr Documented by: [id number] Admin: 05/31/21 19:37 Dose: 125 mls/hr Documented by: [id number] Discontinued Medications Sodium Chloride (Nss 1000ml) 500 mls @ 999 mls/hr IV .Q31M ONE Stop: 05/31/21 18:59 Last Infusion: 05/31/21 19:37 Dose: 0 mls/hr Documented by: [id number] Admin: 05/31/21 19:15 Dose: 999 mls/hr Documented by: [id number] Sodium Chloride (Nss 1000ml) 500 mls @ 999 mls/hr IV .Q31M ONE Stop: 05/31/21 23:36 Last Admin: 05/31/21 23:35 Dose: 999 mls/hr Documented by: [id number] Medical Decision Making Laboratory Data Result diagrams: 05/31/21 18:00 05/31/21 18:00 Lab Results 05/31/21 05/31/21 05/31/21 Range/Units 18:00 18:00 18:00 WBC 10.69 (4.8-10.8) K/uL RBC 3.40 L (4.7-6.1) M/uL Hgb 10.3 L (14.0-18.0) g/dL Hct 30.1 L (42-52) % MCV 88.5 (80-100) fL MCH 30.3 (25-34) pg MCHC 34.2 (32-36) g/dL RDW Std Deviation 55.9 H (36.4-46.3) fL RDW Coeff of Thomas 17.2 H (11.5-14.5) % Plt Count 148 (130-400) K/uL MPV 9.0 (7.4-10.4) fL Immature Gran % (Auto) 0.2 % Neut % (Auto) 83.6 % Lymph % (Auto) 8.5 % Johnston % (Auto) 6.4 % Eos % (Auto) 1.1 % Baso % (Auto) 0.2 % Neut # (Auto) 8.94 H (1.4-6.5) K/uL Lymph # (Auto) 0.91 L (1.2-3.4) K/uL Johnston # (Auto) 0.68 H (0.11-0.59) K/uL Eos # (Auto) 0.12 (0-0.5) K/uL Baso # (Auto) 0.02 (0-0.2) K/uL Immature Gran # (Auto) 0.02 (0.00-0.02) K/uL Sodium 128 L (136-145) mmol/L Potassium 5.2 H (3.5-5.1) mmol/L Chloride 100 (98-107) mmol/L Carbon Dioxide 21 (21-32) mmol/L Anion Gap 7 (3-11) BUN 65 H (6-23) mg/dl Creatinine 1.68 H (0.6-1.4) mg/dl Est Cr Clr Drug Dosing 36.1 ml/min Est GFR ( Amer) 43.2 ml/min Est GFR (Non-Af Amer) 37.3 ml/min BUN/Creatinine Ratio 38.7 H (10-20) Glucose 96 (70-99(Fasting)) mg/dl Lactate (0.4-2.0) mmol/L Calcium 9.1 (8.5-10.1) mg/dl Magnesium 2.1 (1.7-2.4) mg/dl Total Bilirubin 0.5 (0.2-1.0) mg/dl AST 23 (13-39) U/L ALT 11 (7-52) U/L Alkaline Phosphatase 62 (34-104) U/L Troponin I High Sens 131.8 H* (0-20) pg/ml C-Reactive Protein (0-0.5) mg/dl Total Protein 7.3 (6.0-8.3) gm/dl Albumin 3.6 (3.4-5.0) gm/dl Globulin 3.7 (2.5-4.0) gm/dl Albumin/Globulin Ratio 1.0 (0.9-2) Procalcitonin (0-0.5) ng/ml Urine Color Urine Appearance (Clear) Urine pH (4.5-7.5) Ur Specific [place] (1.000-1.030) Urine Protein (Negative) Urine Glucose (UA) (Negative) Urine Ketones (Negative) Urine Blood (Negative) Urine Nitrite (Negative) Urine Bilirubin (Negative) Urine Urobilinogen (Negative) Ur Leukocyte Esterase (Negative) Urine WBC (Auto) (0-5) /hpf Urine RBC (Auto) (0-4) /hpf U Hyaline Cast (Auto) (0-5) /lpf U Epithel Cells (Auto) (0-5) /lpf Urine Bacteria (Auto) (Negative) SARS-CoV-2, RNA, NAAT (NEGATIVE) 05/31/21 05/31/21 05/31/21 Range/Units 18:23 19:07 19:07 WBC (4.8-10.8) K/uL RBC (4.7-6.1) M/uL Hgb (14.0-18.0) g/dL Hct (42-52) % MCV (80-100) fL MCH (25-34) pg MCHC (32-36) g/dL RDW Std Deviation (36.4-46.3) fL RDW Coeff of Thomas (11.5-14.5) % Plt Count (130-400) K/uL MPV (7.4-10.4) fL Immature Gran % (Auto) % Neut % (Auto) % Lymph % (Auto) % Johnston % (Auto) % Eos % (Auto) % Baso % (Auto) % Neut # (Auto) (1.4-6.5) K/uL Lymph # (Auto) (1.2-3.4) K/uL Johnston # (Auto) (0.11-0.59) K/uL Eos # (Auto) (0-0.5) K/uL Baso # (Auto) (0-0.2) K/uL Immature Gran # (Auto) (0.00-0.02) K/uL Sodium (136-145) mmol/L Potassium (3.5-5.1) mmol/L Chloride (98-107) mmol/L Carbon Dioxide (21-32) mmol/L Anion Gap (3-11) BUN (6-23) mg/dl Creatinine (0.6-1.4) mg/dl Est Cr Clr Drug Dosing ml/min Est GFR ( Amer) ml/min Est GFR (Non-Af Amer) ml/min BUN/Creatinine Ratio (10-20) Glucose (70-99(Fasting)) mg/dl Lactate 0.7 (0.4-2.0) mmol/L Calcium (8.5-10.1) mg/dl Magnesium (1.7-2.4) mg/dl Total Bilirubin (0.2-1.0) mg/dl AST (13-39) U/L ALT (7-52) U/L Alkaline Phosphatase (34-104) U/L Troponin I High Sens (0-20) pg/ml C-Reactive Protein (0-0.5) mg/dl Total Protein (6.0-8.3) gm/dl Albumin (3.4-5.0) gm/dl Globulin (2.5-4.0) gm/dl Albumin/Globulin Ratio (0.9-2) Procalcitonin (0-0.5) ng/ml Urine Color Yellow Urine Appearance Clear (Clear) Urine pH 5.0 (4.5-7.5) Ur Specific [place] 1.011 (1.000-1.030) Urine Protein Negative (Negative) Urine Glucose (UA) Negative (Negative) Urine Ketones Negative (Negative) Urine Blood Negative (Negative) Urine Nitrite Negative (Negative) Urine Bilirubin Negative (Negative) Urine Urobilinogen Negative (Negative) Ur Leukocyte Esterase Trace H (Negative) Urine WBC (Auto) 1-5 (0-5) /hpf Urine RBC (Auto) 0-4 (0-4) /hpf U Hyaline Cast (Auto) 1-5 (0-5) /lpf U Epithel Cells (Auto) 5-10 H (0-5) /lpf Urine Bacteria (Auto) Negative (Negative) SARS-CoV-2, RNA, NAAT NEGATIVE (NEGATIVE) 05/31/21 05/31/21 05/31/21 Range/Units 20:31 20:31 20:32 WBC (4.8-10.8) K/uL RBC (4.7-6.1) M/uL Hgb (14.0-18.0) g/dL Hct (42-52) % MCV (80-100) fL MCH (25-34) pg MCHC (32-36) g/dL RDW Std Deviation (36.4-46.3) fL RDW Coeff of Thomas (11.5-14.5) % Plt Count (130-400) K/uL MPV (7.4-10.4) fL Immature Gran % (Auto) % Neut % (Auto) % Lymph % (Auto) % Johnston % (Auto) % Eos % (Auto) % Baso % (Auto) % Neut # (Auto) (1.4-6.5) K/uL Lymph # (Auto) (1.2-3.4) K/uL Johnston # (Auto) (0.11-0.59) K/uL Eos # (Auto) (0-0.5) K/uL Baso # (Auto) (0-0.2) K/uL Immature Gran # (Auto) (0.00-0.02) K/uL Sodium (136-145) mmol/L Potassium (3.5-5.1) mmol/L Chloride (98-107) mmol/L Carbon Dioxide (21-32) mmol/L Anion Gap (3-11) BUN (6-23) mg/dl Creatinine (0.6-1.4) mg/dl Est Cr Clr Drug Dosing ml/min Est GFR ( Amer) ml/min Est GFR (Non-Af Amer) ml/min BUN/Creatinine Ratio (10-20) Glucose (70-99(Fasting)) mg/dl Lactate 0.6 (0.4-2.0) mmol/L Calcium (8.5-10.1) mg/dl Magnesium (1.7-2.4) mg/dl Total Bilirubin (0.2-1.0) mg/dl AST (13-39) U/L ALT (7-52) U/L Alkaline Phosphatase (34-104) U/L Troponin I High Sens 126.0 H* (0-20) pg/ml C-Reactive Protein 12.80 H (0-0.5) mg/dl Total Protein (6.0-8.3) gm/dl Albumin (3.4-5.0) gm/dl Globulin (2.5-4.0) gm/dl Albumin/Globulin Ratio (0.9-2) Procalcitonin 1.61 H (0-0.5) ng/ml Urine Color Urine Appearance (Clear) Urine pH (4.5-7.5) Ur Specific [place] (1.000-1.030) Urine Protein (Negative) Urine Glucose (UA) (Negative) Urine Ketones (Negative) Urine Blood (Negative) Urine Nitrite (Negative) Urine Bilirubin (Negative) Urine Urobilinogen (Negative) Ur Leukocyte Esterase (Negative) Urine WBC (Auto) (0-5) /hpf Urine RBC (Auto) (0-4) /hpf U Hyaline Cast (Auto) (0-5) /lpf U Epithel Cells (Auto) (0-5) /lpf Urine Bacteria (Auto) (Negative) SARS-CoV-2, RNA, NAAT (NEGATIVE) Imaging Data Radiologist's Impression: Chest X-Ray 05/31/21 18:31 XR chest 1V portable CLINICAL HISTORY: weakness TECHNIQUE: Single frontal radiograph of the chest was obtained. Comparison: Comparison is made to chest radiographs 06/20/2005 FINDINGS: No lines and tubes are seen. Calcified aortic knob is seen. Cardiomegaly is noted. The lungs are clear. No evidence of pleural effusion or pneumothorax. IMPRESSION: No acute chest disease. ACT 112: Negative or not required by law. Electronically signed by: Aaron Escalante M.D. 05/31/2021 6:59 PM Knee X-Ray 05/31/21 20:36 XR knee RT 1 or 2V routine, XR knee LT 1 or 2V routine CLINICAL HISTORY: fall, knee pain, weakness/HoTN TECHNIQUE: 2 views of the bilateral knees were obtained. Comparison: None available at the time of this dictation. FINDINGS: There is no evidence of an acute fracture. 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 A small suprapatellar effusion is seen. No soft tissue abnormality is seen. IMPRESSION: Bilateral total knee arthroplasties. Small bilateral effusions without evidence of bony abnormality. ACT 112: Negative or not required by law. Electronically signed by: Aaron Escalante M.D. 05/31/2021 9:08 PM Knee X-Ray 05/31/21 20:36 XR knee RT 1 or 2V routine, XR knee LT 1 or 2V routine CLINICAL HISTORY: fall, knee pain, weakness/HoTN TECHNIQUE: 2 views of the bilateral knees were obtained. Comparison: None available at the time of this dictation. FINDINGS: There is no evidence of an acute fracture. 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 A small suprapatellar effusion is seen. No soft tissue abnormality is seen. IMPRESSION: Bilateral total knee arthroplasties. Small bilateral effusions without evidence of bony abnormality. ACT 112: Negative or not required by law. Electronically signed by: Aaron Escalante M.D. 05/31/2021 9:08 PM [facility] Narrative 1814: The patient was evaluated in room A12. A complete history and physical exam was performed Cardiac monitoring: An order was placed for continuous cardiac monitoring. The monitor shows a rate of 70 with atrial fibrilation rhythm 1945:Vital signs stable. Labs show sodium 128. Potassium 5.2. Creatinine elevated 1.68. Troponin elevated at 131.8. It is thought that the patient's elevated troponin level is due to his acute kidney injury. The patient is not reporting chest pain or difficulty breathing. Patient will be admitted to the [facility] service Dr. Maurice team notified. Impression & Plan Elevated troponin, LAKSHMI (acute kidney injury), Acute hyponatremia Discharge Plan Visit Data Chief Complaint: Illness Discharge Problem: Elevated troponin, LAKSHMI (acute kidney injury), Acute hyponatremia Patient Disposition: Admitted As Inpatient Discharge Instructions Interventions: ED Discharge Assessment Last Done: 05/31/21 21:39
[2021-06-01] MEDS: CEROVITE ADV FORMULA TAB PO SCH ×3 (01:31→20:57)
[2021-06-01 08:48] LABS: BUN Creatinine Ratio 39.3 (10-20); Calcium 8.3 mg/dl (8.5-10.1); Creatinine Clr Calc Pharmacy 49.7 ml/min; Est GFR (African American) 63.6 ml/min; Est GFR (Non-African American) 54.9 ml/min; Potassium 4.1 mmol/L (3.5-5.1)
[2021-06-01] MEDS ORDERED: NON-FORMULARY MEDICATION (Multivitamin tablet) PO SCH (09:00)
[2021-06-01] MEDS ORDERED: PANTOprazole 40 MG TAB PO SCH (09:00)
[2021-06-01 09:02] LABS: Basophils # (auto) 0.03 K/uL (0-0.2); Basophils % (auto) 0.4 %; Eosinophils # (auto) 0.19 K/uL (0-0.5); Eosinophils % (auto) 2.7 %; Hematocrit (blood only) 26.5 % (42-52); Hemoglobin 8.8 g/dL (14.0-18.0); Immature Granulocytes # (auto) 0.01 K/uL (0.00-0.02); Immature Granulocytes % (auto) 0.1 %; Lymphocytes # (auto) 0.88 K/uL (1.2-3.4); Lymphocytes % (auto) 12.4 %; Mean Corpuscular Hemoglobin 29.5 pg (25-34); Mean Corpuscular Hgb Conc 33.2 g/dL (32-36); Mean Corpuscular Volume 88.9 fL (80-100); Mean Platelet Volume 9.2 fL (7.4-10.4); Monocytes # (auto) 0.64 K/uL (0.11-0.59); Neutrophils # (auto) 5.33 K/uL (1.4-6.5); Neutrophils % (auto) 75.4 %; Platelet Count 128 K/uL (130-400); RDW Coefficient of Variation 17.3 % (11.5-14.5); RDW Standard Deviation 56.7 fL (36.4-46.3); Red Blood Count 2.98 M/uL (4.7-6.1); White Blood Count 7.08 K/uL (4.8-10.8)
[2021-06-01] MEDS: ASPIRIN 81 MG ECTAB PO SCH (09:04)
[2021-06-01 09:33] LABS: Ferritin 266.3 ng/ml (8-388)
[2021-06-01] MEDS: SODIUM CHLORIDE 0.9% 1000ML 1,000 ML IV SCH (11:01)
--- NOTE | 2021-06-01 12:29 | Hospitalist Progress Note ---
Date of Service June 01, 2021 Assessment & Plan (1) Diarrhea: Plan: Per patient and sister, ongoing diarrhea X 3 to 6 weeks Hospitalized here 04/12: Negative C. difficile toxin, negative stool study. CT of the abdomen and pelvis with mucosal thickening consistent with enteritis. Diarrhea at that time resolved and patient discharged to [facility] for rehab temporarily and then D/C to home Per patient, diarrhea ongoin-6 bouts/day causing progressive weakness and further decline No recent antibiotics. No ill contacts. No abdominal pain. Afebrile. Normal white blood cell count but does have an elevated CRP 12.8 and procalcito sherin of 1.61 Exact etiology unclear but favors infectious with elevated CRP and procalcitonin with mural thickening seen on former CT scan. Empirically start Cipro/Flagyl (until culture data available) Repeat stool studies including for C. difficile and PCR panelpending Will obtain a repeat CT scan of the abdomen and pelvis with oral contrast (given LAKSHMI) Patient with history of Raza's esophagitis and symptoms of dyspepsia. Increased reflux could be contributing to diarrhea thus will increase PPI to twice daily and add Pepcid Hold off on antispasmodic/antidiarrheal agents for now until C. difficile can be ruled out. Can add Metamucil as a bulking agent Patient with history of C-scope done 2019 showing polyps but no other p athologyDr. Case. May consider GI consult pending results of above (2) Hypotension: Plan: Presenting blood pressure 80/47 Secondary to dehydration from diarrhea and continue diuretic therapy in the setting of severe aortic stenosis Patient received IV hydration in the overnight hours. BP improved currently (100/54). Decrease IV fluid rate and complete once current bag infused but continue to hold diuretic therapy and antihypertensive agents (3) LAKSHMI (acute kidney injury): Plan: Likely related to diarrhea in the setting of diuretic agents (patient taking his Lasix 40 mg twice daily, & metolazone 5 mg daily) despite lack of oral intake and persistent diarrhea Creatinine 1.68 upon arrival. Down to 1.22 today following IV hydration Patient tolerating oral intake. Decrease IV fluid rate to 60 cc/HRto complete after current bag infused. Will continue to hold Lasix/metolazone and allow him to "catch up". Will need to address diuretic therapy in a.m. Given progressive/severe aortic stenosis--> would use caution with aggressive preload reduction. May benefit from down titration of chronic diuretic regimen (4) Hyponatremia: Plan: Sodium 128 upon arrival and consistent with hypovolemic hyponatremiaimproved to 133 with IV hydration (5) Elevated troponin: Plan: High-sensitivity troponin elevated at 131. Follow-up downtrending at 126 Patient without acute EKG changes or chest pain Echocardiogram just performed 04/26. No need for repeat given lack of symptomatology Suspect Type II event d/t supply/demand ischemia from hypotension and dehydration rather than cardiac event from unstable plaque Patient does take aspirin routinelyholding this given drop in hemoglobin from 10.3-8.8 and rectal bleeding (see below) (6) Anemia: Plan: Chronic with a baseline hemoglobin of 9-10 Iron level low at 26. Initiate supplementation 06/01, hemoglobin down to 8.8. Likely dilutional drop given aggressive IV hydration overnight. Will repeat H&H this afternoon and if <8.5, will transfuse as would benefit from the oxygen carrying capacity of blood secondary to supply/demand mismatch (7) Physical deconditioning: Plan: Consult PT/OT Patient from home. Recent short stay at [facility] for acute rehab Lengthy discussion with patient and sister. Lives with his sister in a two- story home. Is independent with ambulation. Hopeful goal is back to home if able (8) Diastolic CHF: Plan: Currently overcompensated and clinically volume contracted was taking Lasix 40mg BID and Metolazone 5 mg daily in addition to lisinopril and metoprolol Recent echo 04/26 showing EF of 60 to 65% with severe aortic stenosis Continue to hold diuretic therapy given volume contracted state With resumption of diuretics, would cut back as to avoid significant preload reduction in the setting of severe aortic stenosis Would completely stop lisinopril given severe aortic stenosis (9) Raza's esophagus: Plan: Continue PPI with addition of Pepcid as outlined above (10) Atrial fibrillation: Plan: Currently rate controlled. Takes metoprolol routinely but this is currently on hold given his hypotension Is not on anticoagulation therapy Plan: Patient currently a full code. This was discussed upon admission. Plan of care will be discussed with Dr. To. Further orders as warranted Admission and Anticipated Discharge Date Admission Date: May 31, 2021 Subjective Patient seen on daily rounds today. Presented to hospital for ongoing weakness and diarrhea X 4 to 6 weeks. Hospitalized here 04/05 through 04/12 for generalized weakness/deconditioned state and diarrhea. CT of the abdomen and pelvis done at that time showed mural wall thickening consistent with colitis. Diarrhea resolved while in house. Stool studies were all negative. He was discharged to [facility] for acute rehab. Has been home since the last week of April but has had progressive diarrhea since then (3-6 bouts of diarrhea a day) with progressive decline. Is having BRBPR but denotes this is from his "bleeding hemorrhoids". He denies fevers, chills, abdominal discomfort, or melena. Is UTD with C.Scope (1 year ago per patient) and "normal". Although patient reports having persistent loose stools ongoing X weeks, nursing reports he has not had a bowel movement since hospitalization. Upon further questioning, patient is having dyspepsia, excessive eructation, and a mild sensation of globus. Does have a history of Raza's esophagitis. Is taking pantoprazole once daily. Review of Systems Review of Systems: All systems reviewed and are unremarkable except as noted in HPI and below Denies fevers, chills, headache, nasal congestion, sore throat, cough, chest pain, shortness of breath, palpitations, orthopnea, PND, abdominal pain, nausea, vomiting, constipation, dysuria, hematuria, frequency, back pain, joint pain or swelling, easy bruising or bleeding, skin lesions or rashes. Physical Exam Physical Exam: General: Resting comfortably in his hospital bed. He appears chronically but not acutely ill or toxic. NAD. HEENT: Head is AT/NC. Buccal mucosa is moist and pink Neck: No JVD. Negative hepatojugular reflex Cardiac: Irregularly irregular with controlled ventricular rate Lungs: CTA without W/R/R Abdomen: Normoactive X4. Mild tenderness in the suprapubic and left lower quadrant with distended bladder. Patient reports he does need to urinate Extremities: No peripheral clubbing cyanosis or edema Neuro: A&O X4. Cranial nerves II through XII are grossly intact. No focal neuro deficits Skin: No obvious skin lesions or rashes Psych: Appropriate affect. Pleasant and cooperative Results & Data Results & Data ([facility]) Vital Signs (Past 12 Hours) Vital Signs Temp Pulse Resp BP Pulse Ox 06/01/21 11:20 65 94/54 L 06/01/21 07:41 36.3 C L 77 16 95/57 L 92 06/01/21 02:09 36.8 C 73 14 93/55 L 95 06/01/21 01:35 36.5 C 73 16 93/55 L 95 Laboratory Results 06/01/21 07:57 06/01/21 07:57 PG Care Time/CCT Total # of Minutes Spent Total Time Spent with Patient: Total time spent is greater than 50% in coordination of care (as documented) at patient's floor/unit and/or counseling patient: Coding Level of Care Code 07221 Subseq Hosp Care Lvl 3 Diagnoses Diarrhea R19.7 Diarrhea type: unspecified type LAKSHMI (acute kidney injury) N17.9 Hyponatremia E87.1 Elevated troponin R77.8 Diastolic CHF I50.30 Raza's esophagus K22.70 Atrial fibrillation I48.91 Physical deconditioning R53.81 Anemia D64.9 Hypotension I95.9 (1) Diarrhea Diarrhea type: unspecified type Qualified Code(s): R19.7 - Diarrhea, unspecified
[2021-06-01] MEDS ORDERED: CIPROFLOXACIN / D5W 400 MG/200 ML BAG IV SCH (15:00)
--- NOTE | 2021-06-01 15:24 | CT Scan Report ---
CT SCAN OF THE ABDOMEN AND PELVIS WITHOUT IV CONTRAST CLINICAL HISTORY: Generalized abdominal pain. Diarrhea. COMPARISON STUDY: Abdominal CT dated 04/05/2021. TECHNIQUE: CT scan of the abdomen and pelvis is performed from the lung bases to the proximal femora. Images are reviewed in the axial, sagittal, and coronal planes. IV contrast was not administered for this examination. Note that the examination was performed in suboptimal fashion without oral and IV contrast. A dose lowering technique was utilized adhering to the principles of ALARA. The patient was scanned twice due to severe motion artifact. CT DOSE: 965.80 mGy.cm FINDINGS: Lung bases: The heart is enlarged and without pericardial effusion. The coronary arteries and aortic valve leaflets are densely calcified. The lung bases are grossly clear bibasilar scarring/atelectasis . A small hiatal hernia is noted. Gynecomastia is noted. Liver: The unenhanced liver is liver is normal in size and heterogeneous in attenuation. Nodularity o f the surface contour suggests early morphologic changes of cirrhosis. Scattered subcentimeter hepati c hypodensities likely represent cysts but are too small for definitive characterization. There is no intrahepatic biliary ductal dilatation. Gallbladder: Unremarkable. Spleen: Normal in size and attenuation. Pancreas: The unenhanced pancreas is atrophic and grossly unremarkable. Adrenal glands: Unremarkable. Kidneys: The unenhanced kidneys are atrophic and without hydronephrosis. There is a 3 mm nonobstructi ng left renal calculus. No right renal calculi are identified. There is no evidence of contour deform ing renal mass lesion. Abdominal vasculature: The abdominal aorta is normal in course and caliber noting advanced atheroscle rotic calcification. An infrarenal IVC filter is in place. Bowel: There is no bowel obstruction. Enteric contrast reaches the right colon a hernia in the left v entral pelvis contains nonobstructed small bowel loops. The appendix is not visualized. Peritoneum: There is no intraperitoneal free air or abdominal ascites. Lymphadenopathy: None. Pelvic viscera: Evaluation of the pelvis is severely degraded by streak artifact from bilateral hip a rthroplasties. The bladder is not well evaluated. The prostate gland is enlarged and heterogeneous. Skeletal structures: The skeletal structures are osteopenic. There is advanced lumbosacral spondylosi s. No lytic or blastic lesions are seen. Bilateral hip arthroplasties are in place. There are subacut e left anterior rib fractures. IMPRESSION: 1. Significantly motion degraded examination. 2. No acute infectious or inflammatory findings are identified in the abdomen or pelvis. 3. A hernia in the left ventral pelvis contains nonobstructed small bowel loops. No obstruction is id entified. 4. Cardiomegaly. 5. There are subacute/healing left anterior rib fractures. 6. Left-sided nephrolithiasis. 7. Additional findings as above. ACT 112: Negative or not required by law. Electronically signed by: Tex Villasenor M.D. 06/01/2021 3:22 PM
[2021-06-01 15:54] LABS: Hemoglobin 10.2 g/dL (14.0-18.0)
[2021-06-01] MEDS: PANTOprazole 40 MG TAB PO SCH (20:57)
[2021-06-01] MEDS: FAMOTIDINE 20 MG TAB PO SCH (20:57)
[2021-06-01] MEDS ORDERED: metroNIDAZOLE 500 MG TAB PO SCH (21:00)
--- NOTE | 2021-06-01 21:27 | Billing Data ---
Date of Service June 01, 2021 Coding Level of Care Code 03685 Initial Inpt Care Lvl 3
[2021-06-02 06:27] LABS: Hemoglobin 9.4 g/dL (14.0-18.0); Mean Corpuscular Hemoglobin 29.8 pg (25-34); Mean Corpuscular Hgb Conc 33.6 g/dL (32-36); Mean Corpuscular Volume 88.9 fL (80-100); Mean Platelet Volume 9.1 fL (7.4-10.4); Platelet Count 131 K/uL (130-400); RDW Standard Deviation 55.4 fL (36.4-46.3); Red Blood Count 3.15 M/uL (4.7-6.1); White Blood Count 6.58 K/uL (4.8-10.8)
[2021-06-02 06:56] LABS: BUN Creatinine Ratio 27.8 (10-20); C Reactive Protein 10.53 mg/dl (0-0.5); Calcium 8.4 mg/dl (8.5-10.1); Creatinine Clr Calc Pharmacy 52.7 ml/min; Est GFR (African American) 68.3 ml/min; Est GFR (Non-African American) 58.9 ml/min; Magnesium 1.9 mg/dl (1.7-2.4); Potassium 4.2 mmol/L (3.5-5.1)
[2021-06-02] MEDS: FAMOTIDINE 20 MG TAB PO SCH ×2 (08:00→20:46)
[2021-06-02] MEDS: FERROUS SULFATE 325 MG TAB PO SCH (08:00)
[2021-06-02] MEDS: PSYLLIUM 58.6% POWDER PACKET PO SCH (08:00)
[2021-06-02] MEDS: CEROVITE ADV FORMULA TAB PO SCH ×2 (08:00→20:46)
[2021-06-02] MEDS: PANTOprazole 40 MG TAB PO SCH ×2 (08:00→20:46)
[2021-06-02 12:20] LABS: Adenovirus F 40/41 PCR Not Detected (NotDetected); Astrovirus PCR Not Detected (NotDetected); Campylobacter PCR Not Detected (NotDetected); Clostridium diff Toxin A/B PCR Not Detected (NotDetected); Cryptosporidium PCR Not Detected (NotDetected); Cyclospora cayetanensis PCR Not Detected (NotDetected); Entamoeba histolytica PCR Not Detected (NotDetected); Enteroaggregative E.coli(EAEC) Not Detected (NotDetected); Enteropathogenic E.coli (EPEC) Not Detected (NotDetected); Enterotoxigenic E.coli (ETEC) Not Detected (NotDetected); Giardia lamblia PCR Not Detected (NotDetected); Norovirus GI/GII PCR Not Detected (NotDetected); Plesiomonas shigelloides PCR Not Detected (NotDetected); Rotavirus A PCR Not Detected (NotDetected); Salmonella PCR Not Detected (NotDetected); Sapovirus PCR Not Detected (NotDetected); Shiga-like Toxin E.coli (STEC) Not Detected (NotDetected); Shigella/Enteroinvasive E.coli Not Detected (NotDetected); Vibrio cholerae PCR Not Detected (NotDetected); Vibrio species PCR Not Detected (NotDetected); Yersinia enterocolitica PCR Not Detected (NotDetected)
[2021-06-02] MEDS ORDERED: METOPROLOL SUCC 25MG EXT REL TAB PO SCH (13:45)
--- NOTE | 2021-06-02 18:28 | Hospitalist Progress Note ---
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 At present, his overall presentation is most suspicious for dehydration. Borderline Hypotension Presented to [facility] from with blood pressure 96/60, normal HR/RR/SpO2 w/ clinically dry appearance Hypotension resolved following admission of 1500 cc NSS in the ED Work-up as follows: - No leukocytosis. Afebrile. Other than chronic loose stools, no clear source of infection. CXR normal. - Persistent anemia noted at 10.3comparable to previous measurements in April - Metabolic panel revealing sodium 128/potassium 5.2/BUN 65/creatinine 1.68 (baseline 0.8-1.1) - Procal 1.6, CRP 12, lactate normal - hsTRP - 132, recheck at 126 At present, strongly suspect that patient's borderline hypotension and overall appearance is consistent with subacute dehydration. This is supported by poor p.o. intake on history, as well as continued use of diuretics, into the fact that patient responded well fast to fluid resuscitation. Loose stools may be contributing, though he reports this is chronic and has not been exacerbated lately. There is no clear evidence of infection (see note below). There is no evidence of acute heart failure. There is no evidence of obstructive process at present. BP marginal today, will re-institute IVF hydration overnight x 1L Continue holding Lasix, lisinopril, metolazone, metoprolol until continued demonstration of normotension, resolution of LAKSHMI Check BMP in a.m. Unsure, at present, what to make of elevated procal and CRP - in setting of acute renal insufficiency, these can be bumped a little bit. No obvious source of infection. (2) Acute kidney injury: Plan: Metabolic panel revealing sodium 128/potassium 5.2/BUN 65/creatinine 1.68 (baseline 0.8-1.1) Strongly suspect prerenal in origin in context of clinically dry appearance, ongoing medication usage (which includes diuresis), fluid responsiveness with regards to blood pressure Status post receipt of 1500 cc normal saline in the ED Continue normal saline x 500cc, can add more if needed Monitor urine output If fails to improve despite ongoing fluid resuscitation, can consider ultrasound of the kidneys, FENa calculation Resolved back to baseline of 1.15 with hydration and holding VINICIUS and diuretic (3) Hyponatremia: Plan: Appreciated on arrival, NA 128 in the setting of BUN 65/creatinine 1.68 Suspect hypovolemic hyponatremia. Gentle fluid replacement, as above, for suspected dehydration If sodium fails to improve with renal insufficiency and rehydration, would consider obtaining FENa, urine osmole's for further clarification (4) Hyperkalemia: Plan: On admission, noted to have very mildly elevated potassium 5.2 in the setting of LAKSHMI, volume contraction IV fluids, as above. Hold home lisinopril. No longer on spironolactone. - Recheck this AM 4.2 (5) Loose stools: Plan: Patient with long reported history of loose stools, history extending back to the timeframe of March2denies hematochezia or melena, though has been noted to have positive Hemoccults in the past and was told to follow-up as an outpatient Primarily suspect that this is a chronic issue. However because he came in hypotensive and has some difficulty providing detailed history and was in a fpc, opt to recheck stool PCR panel and C. diff and recheck occult blood. * PCR panel all negative and repeat hemoccult was negative May need to consider adding daily loperamide to regimen given possible contribution to labile blood pressures and frequent readmissions - hold off for now as stool was slightly formed No abdominal findings on exam today or reports in history to order CT of the abdomen and pelvis at this time; however, if clinical appearance changes or is worsening, low threshold to obtain Patient will need to follow-up with PCP as outpatient to potentially discuss colonoscopy to further clarify occult blood in the stool While oral iron supplementation is normally thought to cause constipation, 5 to 8% of people can experience loose stools/diarrhea with chronic therapy; may wish to modify his chronic therapy in the a.m. pending stool count. (6) Anemia: Plan: Patient with long documented history of normocytic anemia, with hemoglobin around 10, in the setting of positive heme-occult stools in the past (though currently denying hematochezia/melena) At this time, lower suspicion that this is contributing to the acute reason for admission Recheck iron studies in the a.m.while here, if persistently low, can consider IV iron infusion (7) Elevated troponin: Plan: On arrival, troponin noted to be 132; patient was denying any chest discomfort, shortness of breath at present or within the past few weeks Recheck 126 -- downtrending No EKG changesconduction or repolarization abnormalities Primarily suspect secondary to acute renal insufficiency and supply/demand mismatch in the setting of dehydration (8) Ambulatory dysfunction: Plan: Noted history of ambulatory dysfunction, which it was one of the reasons for his admission in April 2021 Patient reported fall at home day prior to discharge in setting of weakness, suspected dehydration; during last admission, he also reported several falls within the last several months Consult PT, OT: Appreciate recommendations and dispositional insights (9) Hearing loss: Plan: History noted. Continue using hearing aids while here. (10) Atrial fibrillation: Plan: - Rate controlled while here, currently examines in NSR - Follows with Dr. Edgar; notes reviewed, which reveal that patient refuses anti-coagulation despite high [id number] score - Hold metoprolol during resolving hypotension (11) Diastolic CHF: Plan: -Clinically dry appearing on exam. Asymptomatic. - Last TTE 04/2021 showing normal LV function with EF of 60 to 65%, severe aortic stenosis, mild to moderate tricuspid regurgitation - Hold metoprolol, Lasix, metolazone at this time (12) Hypertension: Plan: Presented with hypotension, suspected to be secondary to dehydration Hold home agents with potential to affect BPs while HoTN demonstrates persistent resolutionmetoprolol, Lasix, metolazone Will ultimately stop Lisinopril given severe and needing to avoid preload reducing agents (13) Severe aortic stenosis: Plan: - History noted in setting of ongoing fluid resuscitation Plan: Code: FULL CODE - discussed extensively at admission with patient and sister; he states for now, he would like to be full code, but also wants to discuss more with Sister because he's never fully thought of it before -- agrees if he has any concerns, clarifications, questions, or changes, that he is to speak with daytime team. Will gently hydrate overnight. Resume holding Metoprolol Tartrate. May need to reach out to cardiology (follows w/ Dr. Edgar) regarding changing him to an antiarrhythmic such as Amiodarone given his soft pressures or consider Digoxin (although given his advanced age and poor PO intake, would be a concern for dig toxicity) to keep him out of afib. Repeat labs in AM. Continue PT/OT. D/C planning. Pt apparently is planning to return home with his sister. Provided update to her this afternoon. Admission and Anticipated Discharge Date Admission Date: May 31, 2021 Subjective Patient seen on daily rounds today. Presented to hospital for ongoing weakness and diarrhea X 4 to 6 weeks. Hospitalized here 04/05 through 04/12 for generalized weakness/deconditioned state and diarrhea. CT of the abdomen and pelvis done at that time showed mural wall thickening consistent with colitis. Diarrhea resolved while in house. Stool studies were all negative. He was discharged to [facility] for acute rehab. Has been home since the last week of April but has had progressive diarrhea since then (3-6 bouts of diarrhea a day) with progressive decline. Reportedly having BRBPR but denotes this is from his "bleeding hemorrhoids". Is UTD with colonoscopy (1 year ago per patient) and "normal". Although patient reports having persistent loose stools ongoing for weeks, pt did not have a loose BM since admission (not overnight last night) and had a BM this morning which was soft but not watery/loose. Pt denied BRB or melena. Denies abd pain, gu symptoms, fever, chills. Per sister, he reportedly has tried Imodium and BRAT diet in the past without relief. He has not been seen by GI this admission. Review of Systems Review of Systems: All systems reviewed and are unremarkable except as noted in HPI and below Denies fevers, chills, headache, nasal congestion, sore throat, cough, chest pain, shortness of breath, palpitations, orthopnea, PND, abdominal pain, nausea, vomiting, constipation, dysuria, hematuria, frequency, back pain, joint pain or swelling, easy bruising or bleeding, skin lesions or rashes. Physical Exam Physical Exam: GENERAL: 80 yo well-developed, well-nourished elderly WM. NAD. LUNGS: Clear to auscultation bilaterally. No W/R/R. CARDIOVASCULAR: Regular rate and rhythm. ABDOMEN: Soft, non-tender and non-distended. BS normoactive x 4 quad. EXTREMITIES: No edema. Non-tender. Peripheral pulses +2/4. NEUROLOGIC: A&O x3. PSYCHIATRIC: Cooperative. Appropriate mood and affect. SKIN: Warm, dry, intact. No rashes or lesions. Results & Data Results & Data ([facility]) Vital Signs (Past 12 Hours) Vital Signs Temp Pulse Resp BP Pulse Ox 06/02/21 15:22 36.6 C 99 H 16 95/58 L 96 06/02/21 14:50 116/70 06/02/21 09:02 36.8 C 89 18 138/72 96 Laboratory Results 06/02/21 06:18 06/02/21 06:18 PG Care Time/CCT Total # of Minutes Spent Total Time Spent with Patient: Total time spent is greater than 50% in coordination of care (as documented) at patient's floor/unit and/or counseling patient: Coding Level of Care Code 11263 Subseq Hosp Care Lvl 3 Diagnoses Hypotension I95.9 Acute kidney injury N17.9 Hyponatremia E87.1 Hyperkalemia E87.5 Loose stools R19.5 Anemia D64.9 Elevated troponin R77.8 Ambulatory dysfunction R26.2 Hearing loss H91.90 Atrial fibrillation I48.91 Diastolic CHF I50.30 Hypertension I10 Severe aortic stenosis I35.0
[2021-06-02] MEDS ORDERED: SODIUM CHLORIDE 0.9% 1000ML 1,000 ML IV SCH (18:30)
[2021-06-03 06:33] LABS: Calcium 8.4 mg/dl (8.5-10.1); Creatinine Clr Calc Pharmacy 69.7 ml/min; Est GFR (African American) 93.2 ml/min; Est GFR (Non-African American) 80.4 ml/min; Potassium 3.8 mmol/L (3.5-5.1)
[2021-06-03] MEDS: PANTOprazole 40 MG TAB PO SCH (08:10)
[2021-06-03] MEDS: FAMOTIDINE 20 MG TAB PO SCH (08:10)
[2021-06-03] MEDS: FERROUS SULFATE 325 MG TAB PO SCH (08:11)
[2021-06-03] MEDS: CEROVITE ADV FORMULA TAB PO SCH (08:11)
[2021-06-03] MEDS: PSYLLIUM 58.6% POWDER PACKET PO SCH (08:11)
[2021-06-03] MEDS ORDERED: ASPIRIN 81 MG ECTAB PO SCH (09:00)
--- NOTE | 2021-06-03 15:19 | Discharge Summary ---
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 Of note, patient was recently discharged from [facility] on 04/2921 for ongoing loose stools, weakness, and falls - was hypotensive on arrival with RVR - C diff negative, found to have enteritis, presentation suspected to be secondary to dehydration. Patient said that he was in his normal health up until Sunday, where he experienced chills. He had no other symptoms associated thisno cough no shortness of breath, no belly pain. He has had chronic diarrhea over the last 3 months, which he describes as "loose stool 1-3 times per day." It is not changed recently at all. He has not had nausea or vomiting. Then, throughout yesterday, he began feeling more weak. He did get out of bed this morning, and reports tripping and falling. His right knee, which does have a replacement, did hurt initially, but he was able to get up. He denies hitting his head or losing consciousness. Later in the day, he was participating in PT, where they took his blood pressure and noted it to be "soft." He was asymptomatic and denied any lightheadedness or dizziness. Because of his weakness, they wanted him to come out to the hospital to be evaluated. He has been taking his Lasix as prescribed. His sister, who contributes to history, actually endorses that his legs have continued to look better with less swelling over the last couple of weeks He denies any sick contacts. Denies any medication changeshas continued to take his Lasix and spironolactone on a regular basis (though sister notes to me that the spironolactone was supposed to be discontinued a few months ago). Denies regular use of tobacco, alcohol, or recreational drugs. Medications reviewed and include ferrous sulfate 325 mg daily, Lasix 80 mg daily, Toprol succinate 25 mg daily, omeprazole 20 mg daily, potassium chloride 20 mEq daily, aspirin 81 mg daily, multivitamin, acetaminophen 325 mg as needed. In the ER, patient was found to be with softer blood pressure 96/60 with normal heart rate, oxygen saturation and respiratory rate. Labs demonstrated white count 10.7, persistent anemia at 10.3 that is normocytic, sodium 128, potassium 5.2, BUN 65, creatinine 1.68 (baseline appears between 0.81.1), high- sensitivity troponin 132, urinalysis demonstrating trace leuk esterase, COVID test negative. Chest x-ray was unrevealing for any acute processes. He was given a total of 1500 cc NSS in the ED. Principal Diagnosis 1. Borderline hypotension 2. Moderate dehydration 3. Hyperkalemia--resolved 4. Diarrhea--resolved 5. Elevated troponin--likely representing type II SC demand-ischemia 6. LAKSHMI--resolved Discharge Exam GENERAL: 80 yo well-developed, well-nourished elderly WM. NAD. LUNGS: Clear to auscultation bilaterally. No W/R/R. CARDIOVASCULAR: Regular rate and rhythm 2/6 RAYNA. ABDOMEN: Soft, non-tender and non-distended. BS normoactive x 4 quad. EXTREMITIES: No edema. Non-tender. Peripheral pulses +2/4. NEUROLOGIC: A&O x3. PSYCHIATRIC: Cooperative. Appropriate mood and affect. SKIN: Warm, dry, intact. No rashes or lesions. Discharge Data Allergies Allergy/AdvReac Type Severity Reaction Status Date / Time No Known Allergies Allergy Unknown Verified 05/31/21 20:32 Consultations 05/31/21 19:40 ED Decision to Admit Stat Ordered Studies Chest X-Ray 05/31/21 18:31 XR chest 1V portable CLINICAL HISTORY: weakness TECHNIQUE: Single frontal radiograph of the chest was obtained. Comparison: Comparison is made to chest radiographs 06/20/2005 FINDINGS: No lines and tubes are seen. Calcified aortic knob is seen. Cardiomegaly is noted. The lungs are clear. No evidence of pleural effusion or pneumothorax. IMPRESSION: No acute chest disease. ACT 112: Negative or not required by law. Electronically signed by: Aaron Escalante M.D. 05/31/2021 6:59 PM Knee X-Ray 05/31/21 20:36 XR knee RT 1 or 2V routine, XR knee LT 1 or 2V routine CLINICAL HISTORY: fall, knee pain, weakness/HoTN TECHNIQUE: 2 views of the bilateral knees were obtained. Comparison: None available at the time of this dictation. FINDINGS: There is no evidence of an acute fracture. 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 A small suprapatellar effusion is seen. No soft tissue abnormality is seen. IMPRESSION: Bilateral total knee arthroplasties. Small bilateral effusions without evidence of bony abnormality. ACT 112: Negative or not required by law. Electronically signed by: Aaron Escalante M.D. 05/31/2021 9:08 PM Knee X-Ray 05/31/21 20:36 XR knee RT 1 or 2V routine, XR knee LT 1 or 2V routine CLINICAL HISTORY: fall, knee pain, weakness/HoTN TECHNIQUE: 2 views of the bilateral knees were obtained. Comparison: None available at the time of this dictation. FINDINGS: There is no evidence of an acute fracture. 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 A small suprapatellar effusion is seen. No soft tissue abnormality is seen. IMPRESSION: Bilateral total knee arthroplasties. Small bilateral effusions without evidence of bony abnormality. ACT 112: Negative or not required by law. Electronically signed by: Aaron Escalante M.D. 05/31/2021 9:08 PM Abdomen/Pelvis CT 06/01/21 12:27 CT SCAN OF THE ABDOMEN AND PELVIS WITHOUT IV CONTRAST CLINICAL HISTORY: Generalized abdominal pain. Diarrhea. COMPARISON STUDY: Abdominal CT dated 04/05/2021. TECHNIQUE: CT scan of the abdomen and pelvis is performed from the lung bases to the proximal femora. Images are reviewed in the axial, sagittal, and coronal planes. IV contrast was not administered for this examination. Note that the examination was performed in suboptimal fashion without oral and IV contrast. A dose lowering technique was utilized adhering to the principles of ALARA. The patient was scanned twice due to severe motion artifact. CT DOSE: 965.80 mGy.cm FINDINGS: Lung bases: The heart is enlarged and without pericardial effusion. The coronary arteries and aortic valve leaflets are densely calcified. The lung bases are grossly clear bibasilar scarring/atelectasis. A small hiatal hernia is noted. Gynecomastia is noted. Liver: The unenhanced liver is liver is normal in size and heterogeneous in attenuation. Nodularity of the surface contour suggests early morphologic veronica nges of cirrhosis. Scattered subcentimeter hepatic hypodensities likely represent cysts but are too small for definitive characterization. There is no intrahepatic biliary ductal dilatation. Gallbladder: Unremarkable. Spleen: Normal in size and attenuation. Pancreas: The unenhanced pancreas is atrophic and grossly unremarkable. Adrenal glands: Unremarkable. Kidneys: The unenhanced kidneys are atrophic and without hydronephrosis. There is a 3 mm nonobstructing left renal calculus. No right renal calculi are identified. There is no evidence of contour deforming renal mass lesion. Abdominal vasculature: The abdominal aorta is normal in course and caliber noting advanced atherosclerotic calcification. An infrarenal IVC filter is in place. Bowel: There is no bowel obstruction. Enteric contrast reaches the right colon a hernia in the left ventral pelvis contains nonobstructed small bowel loops. The appendix is not visualized. Peritoneum: There is no intraperitoneal free air or abdominal ascites. Lymphadenopathy: None. Pelvic viscera: Evaluation of the pelvis is severely degraded by streak artifact from bilateral hip arthroplasties. The bladder is not well evaluated. The prostate gland is enlarged and heterogeneous. Skeletal structures: The skeletal structures are osteopenic. There is advanced lumbosacral spondylosis. No lytic or blastic lesions are seen. Bilateral hip arthroplasties are in place. There are subacute left anterior rib fractures. IMPRESSION: 1. Significantly motion degraded examination. 2. No acute infectious or inflammatory findings are identified in the abdomen or pelvis. 3. A hernia in the left ventral pelvis contains nonobstructed small bowel loops. No obstruction is identified. 4. Cardiomegaly. 5. There are subacute/healing left anterior rib fractures. 6. Left-sided nephrolithiasis. 7. Additional findings as above. ACT 112: Negative or not required by law. Electronically signed by: Tex Villasenor M.D. 06/01/2021 3:22 PM Hospital Course (1) Hypotension: Presented to [facility] from with blood pressure 96/60, normal HR/RR/SpO2 w/ clinically dry appearance Hypotension resolved following admission of 1500 cc NSS in the ED Work-up as follows: - No leukocytosis. Afebrile. Other than chronic loose stools, no clear source of infection. CXR normal. - Persistent anemia noted at 10.3comparable to previous measurements in April - Metabolic panel revealing sodium 128/potassium 5.2/BUN 65/creatinine 1.68 (baseline 0.8-1.1) - Procal 1.6, CRP 12, lactate normal - hsTRP - 132, recheck at 126 At present, strongly suspect that patient's borderline hypotension and overall appearance is consistent with subacute dehydration. This is supported by poor p.o. intake on history, as well as continued use of diuretics, into the fact that patient responded well fast to fluid resuscitation. Loose stools may be contributing, though he reports this is chronic and has not been exacerbated lately. There is no clear evidence of infection (see note below). There is no evidence of acute heart failure. There is no evidence of obstructive process at present. Lasix, lisinopril, metolazone, metoprolol held upfront Attempted to resume Metoprolol on 06/02 but pressure dropped into the 90s systolic Metoprolol placed back on hold and he was hydrated overnight BP better today and HR in the 60s w/o BB therapy. Remains in NSR. May need to consider another agent (such as antiarrhythmic therapy) to keep out of afib. Unsure, at present, what to make of elevated procal and CRP - in setting of acute renal insufficiency, these can be bumped a little bit. No obvious source of infection. (2) Acute kidney injury: Metabolic panel revealing sodium 128/potassium 5.2/BUN 65/creatinine 1.68 (baseline 0.8-1.1) Strongly suspect prerenal in origin in context of clinically dry appearance, ongoing medication usage (which includes diuresis), fluid responsiveness with regards to blood pressure Status post receipt of 1500 cc normal saline in the ED Continue normal saline x 500cc, can add more if needed Monitor urine output If fails to improve despite ongoing fluid resuscitation, can consider ultrasound of the kidneys, FENa calculation Resolved back to baseline of 1.15 with hydration and holding VINICIUS and diuretic (3) Hyponatremia: Appreciated on arrival, NA 128 in the setting of BUN 65/creatinine 1.68 Suspect hypovolemic hyponatremia. Gentle fluid replacement, as above, for suspected dehydration Na has improved with hydration (4) Hyperkalemia: On admission, noted to have very mildly elevated potassium 5.2 in the setting of LAKSHMI, volume contraction IV fluids, as above. Hold home lisinopril. No longer on spironolactone. Recheck this AM 4.2 (5) Loose stools: Patient with long reported history of loose stools, history extending back to the timeframe of March2denies hematochezia or melena, though has been noted to have positive Hemoccults in the past and was told to follow-up as an outpatient Primarily suspect that this is a chronic issue. However because he came in hypotensive and has some difficulty providing detailed history and was in a shelter, opt to recheck stool PCR panel and C. diff and recheck occult blood. * PCR panel all negative and repeat hemoccult was negative May need to consider adding daily loperamide to regimen given possible contribution to labile blood pressures and frequent readmissions - hold off for now as stool was slightly formed No abdominal findings on exam today or reports in history to order CT of the abdomen and pelvis at this time; however, if clinical appearance changes or is worsening, low threshold to obtain Patient will need to follow-up with PCP as outpatient to potentially discuss colonoscopy to further clarify occult blood in the stool While oral iron supplementation is normally thought to cause constipation, 5 to 8% of people can experience loose stools/diarrhea with chronic therapy; may wish to modify his chronic therapy in the a.m. pending stool count. (6) Anemia: Patient with long documented history of normocytic anemia, with hemoglobin around 9-10 At this time, lower suspicion that this is contributing to the acute reason for admission Recheck of serum iron 26, takes FeSO4 every other day, would recommend increasing this to taking twice a day (every day) - this may also assist with loose stools Had previous positive hemoccult, repeat during this admission was negative (7) Elevated troponin: On arrival, troponin noted to be 132; patient was denying any chest discomfort, shortness of breath at present or within the past few weeks Recheck 126 -- downtrending No EKG changesconduction or repolarization abnormalities Primarily suspect secondary to acute renal insufficiency and supply/demand mismatch in the setting of dehydration (8) Ambulatory dysfunction: Noted history of ambulatory dysfunction, which it was one of the reasons for his admission in April 2021 Patient reported fall at home day prior to discharge in setting of weakness, suspected dehydration; during last admission, he also reported several falls within the last several months Consult PT, OT: home w/ home health recommended (9) Hearing loss: History noted. Continue using hearing aids while here. (10) Atrial fibrillation: Rate controlled while here, currently examines in NSR Follows with Dr. Edgar; notes reviewed, which reveal that patient refuses anti-coagulation despite high [id number] score Metoprolol Succinate held throughout admission, attempted resumption but BP dropped Will ultimately stop, pt may need to consider another class of meds to keep out of afib, but at this point, will defer to cardiology to determine if needed and what agent to use (11) Diastolic CHF: Clinically dry appearing on exam. Asymptomatic. Last TTE 04/2021 showing normal LV function with EF of 60 to 65%, severe aortic stenosis, mild to moderate tricuspid regurgitation Held metoprolol, Lasix, metolazone during admission Remains euvolemic despite note receiving his meds Will plan to place on sliding scale of Lasix - would recommend he purchase a scale and weigh himself daily in the AM prior to eating/drinking Will refer to Katherine Dalton PA-C to follow up in the HF clinic Continue holding Toprol XL at discharge (attempted to resume on 06/02 and pressure dropped), could consider resuming as outpatient if pressure steadily improve or trial of low dose Coreg (12) Hypertension: Presented with hypotension, suspected to be secondary to dehydration Hold home agents with potential to affect BPs while HoTN demonstrates persistent resolutionmetoprolol, Lasix, metolazone Will ultimately stop Lisinopril given severe and needing to avoid preload reducing agents as well as hypotension (13) Severe aortic stenosis: Previously on Lisinopril which has since been stopped due to hypotension Lasix/Metolazone also stopped with Lasix being utilized on sliding scale At this time, pt is medically and hemodynamically stable for discharge home in the care of his sister. PT/OT has seen and evaluated him, felt the was safe for d/c to home. Can f/u with his digital media designer and also in HF clinic. Will refer to GI d/t intermittent bouts of diarrhea. F/U with pcp within 1 week of discharge. Above plan of care has been d/w Dr. Johnson who has also seen and evaluated this patient prior to discharge and agrees with aforementioned. Total Time Total Time Spent Total Time Spent (In Minutes): >30 minutes Discharge Plan Discharge Items Patient Disposition: Home - Home Health Services Reason For Visit: DEHYDRATION, HYPONATREMIA Discharge Diagnosis: Diarrhea, low blood pressure, weakness Activity: Resume your previous activity Non-emergency contact: Primary Care Provider Call non-emergency contact if: you have any medication questions and your symptoms worsen Follow-up/Referrals: Beatris Nicole PA-C [Physician Inspector] - 06/30/21 2:20 pm ([facility]) Mohan Sanches DO [Primary Care Provider] - 06/07/21 11:00 am Katherine Dalton PA-C [Physician Inspector] - (f/u as scheduled) Diet: Regular Addtl Attending Provider Instructions: You were hospitalized due to low blood pressure, diarrhea, and weakness. Initially, you were started on antibiotics in the event that your diarrhea was related to an infection. However, after obtaining a stool sample, it was found that you do not have an infection causing your diarrhea. For that reason, the antibiotics were discontinued. Your blood pressure was likely low due to a combination of things: taking diuretics (medications that help control fluid) as well as dehydration. You were given IV fluids during your stay and your blood pressure medications and fluid pills were placed on hold. With holding your medications and receiving IV fluids your blood pressure improved. At this time, I would STOP the following medications: Metoprolol, Lisinopril, and Metolazone. Your Lasix should ONLY be taken IF you notice increased weight gain or increased swelling in your legs. It is recommended that you weigh yourself every day at home. You should take the Lasix as follows: Lasix 40mg if you gain 3 or more pounds over a 24 hour period or if you gain 5 or more pounds over 7 days. If you notice this, you need to promptly call your digital media designer, Dr. Edgar, and make him aware. We are going to set you up with Katherine Dalton PA-C in the heart failure clinic. She will help with managing your diuretic therapy. We recommend that you follow up with Gastroenterology due to your issues with diarrhea. You were noted to have some blood in your stool during your last hospitalization but the repeat testing done during this hospitalization indicated that this has RESOLVED. At any rate, would still recommend that you follow up with GI (stomach doctor). We would also recommend that you continue taking Metamucil as we have seen improvement in your diarrhea since starting this supplement. I recommend that you obtain a blood pressure monitoring device and keep this at home in order to check your blood pressure once a day or as needed. Record blood pressures and take with you to your primary care provider follow up. We would advise you to follow up with your PCP within 1 week of discharge from the hospital. Your home health agency including physical and occupational therapy as well as care home will follow up with you at home. In the event that you have any questions/concerns, please contact the nonemergency number listed on your discharge. In the event of a medical emergency, call 911. Pending Studies at Discharge: No Stand-Alone Forms: My [facility], Smoking Cessation Medications and DC Order Prescriptions: New famotidine 20 mg Tablet 20 mg PO BID Qty: 60 RF: 0 Metamucil (with sugar) 3.4 gram Powder In Packet 1 pkg PO QAM Qty: 30 RF: 0 Continued omeprazole 20 mg capsule,delayed release(DR/EC) 20 mg PO QAM Qty: 90 RF: 3 acetaminophen 325 mg tablet 650 mg PO Q4H PRN (Reason: Fever Or Pain) RF: 0 ferrous sulfate 325 mg (65 mg iron) tablet 325 mg PO Q OTHER DAY RF: 0 aspirin 81 mg tablet,delayed release (DR/EC) 81 mg PO DAILY RF: 0 multivitamin Tablet 1 tab PO DAILY RF: 0 Hair,Skin and Nails Tablet 1 tab PO BID RF: 0 Changed furosemide 40 mg tablet 40 mg PO DAILY PRN (Reason: weight gain/leg swelling) Qty: 30 RF: 0 Discontinued metoprolol succinate 25 mg tablet extended release 24 hr 12.5 mg PO QAM Qty: 45 RF: 3 metolazone 5 mg tablet 5 mg PO QAM Qty: 30 RF: 11 lisinopril 5 mg Tablet 5 mg PO DAILY RF: 0 potassium chloride 20 mEq tablet extended release 20 meq PO UD RF: 0 Discharge Orders: Discharge Order (Routine); Ordered 06/03/21 Ordered By: Yloanda Singleton/Other Patient Handouts: Self-Care for Vomiting and Diarrhea Admission Data Admit Date/Time: 05/31/21 20:42 Attending Provider: Sylvester Johnson Admit Provider: Jameel Bianchi Primary Care Provider: Mohan Sanches Other Providers: Misael Patel ; [facility] ; [place] Other Interventions: Discharge Summary Assessment (RN) Last Done: 06/03/21 15:42 Supervising Physician Co-Signing Physician Notes I personally saw and examined the patient. I verified all ho points and agree with Yolanda Dumont PA-C with the following exceptions and/or additions: 80-year-old male. Appears relatively confused about his medications on discharge from rehabilitation he was concerned a lot of his medications had changed so went back to diuretics Dr Edgar had previously prescribed him. Tried to re-iterate why his diuretics have changed and will likely continue to change. LAKSHMI and hypotensive on admission. Appears to be from overdiuresis, possibly due to ongoing loose stools in addition to his diuretics. Given stools have improved with Metamucil do not recommend more invasive work-up such as colonoscopy at the present time however could consider this if ongoing. Recommend close follow-up with a heart failure clinic to manage his diuretics ongoing. Coding Level of Care Code D/C DAY MANAGEMENT >30 MINS Diagnoses Hypotension I95.9 Acute kidney injury N17.9 Hyponatremia E87.1 Hyperkalemia E87.5 Loose stools R19.5 Anemia D64.9 Elevated troponin R77.8 Ambulatory dysfunction R26.2 Hearing loss H91.90 Atrial fibrillation I48.91 Diastolic CHF I50.30 Hypertension I10 Severe aortic stenosis I35.0 Home Health Attestation I certify that this patient is under my care and that I, or a physicians graduate research assistant working with me, had a face to-face encounter that meets the home health [id number] encounter requirements with this patient. The encounter with the patient was in whole, or in part, for the following medical condition, which is the primary reason for home health care (list medical condition): dehydration- hyponatermia I certify that, based on my findings, the following services are medically necessary home health services: My clinical findings support the need for the above services because: OT Assess ADL Status and Restore Function w ADLs PT Assessment for Endurance / Balance / Strength PT Eval for Safety and Mobility PT Eval for Safety, Gait Training, Assistive Devices PT Gait and Balance Training, Strengthening and Safety Skilled Nsg Assessment Further, I certify that my clinical findings support that this patient is homebound (i.e. absences from home require considerable and taxing effort and are for medical reasons or restoration services or infrequently or of short duration when for other reasons) because: Supportive Aid - Walker Transportation Assistance/Unable to Leave Home Unassisted Certification for Home Health Services: Based on the above findings, I certify that this patient is confined to the home and needs intermittent care home care, physical therapy and/or speech therapy or continues to need occupational therapy. The patient is under my care, and I have initiated the establishment of the plan of care. This patient will be followed by a physician who will periodically review the plan of care.
== END 2021-06-03 16:47 | disposition home health service (06) | DRG 640 ==
LOC: ED 17:47 → SUATTDRO 20:42 → 3N 20:42